=== PATIENT | male | born 1980 | race African-American/Black ===

== ENCOUNTER 2016-10-29 08:33 | Emergency (ER) | payer MEDICAID, OTHER ==
[~2016-10-29] VITALS: Ht 182.9 cm; Wt 98.4 kg
[~2016-10-29 08:33] MED LIST: INSUINJ3; METF-312; TRAM50TA2
[2016-10-29] MEDS ORDERED: KETOROLAC TROMETH 60MG/2ML VIAL IM ONE (10:30)
[2016-10-29 11:35] VITALS: BP 146/90
== END 2016-10-29 12:21 | disposition home or self-care (01) ==
LOC: ER 08:33
DX: S11.91XA Laceration without foreign body of unspecified part of neck, initial encounter (principal); F17.210 Nicotine dependence, cigarettes, uncomplicated; F12.10 Cannabis abuse, uncomplicated; E11.9 Type 2 diabetes mellitus without complications; W26.8XXA Contact with other sharp object(s), not elsewhere classified, initial encounter; Y93.89 Activity, other specified; Y99.8 Other external cause status; Y92.89 Other specified places as the place of occurrence of the external cause; Z79.4 Long term (current) use of insulin
CPT/HCPCS: 70490; 82962; 96372; 99284; J1885

== ENCOUNTER 2016-11-04 19:26 | Emergency (ER) | payer MEDICAID ==
[~2016-11-04] VITALS: Ht 182.9 cm; Wt 94.5 kg
[2016-11-04 20:58] LABS: Basophils # (auto) 0.1 uL; Basophils % (auto) 0.8 % (0.0-2.0); DEFINITIVE VIEW TRANSMISSION; Eosinophils # (auto) 0.1 uL; Eosinophils % (auto) 1.2 % (0.0-7.0); Hematocrit 37.6 % (41.0-53.0); Hemoglobin 11.7 g/dL (13.5-17.5); Lymphocytes # (auto) 2.9 uL; Lymphocytes % (auto) 31.4 % (10.0-50.0); Mean Corpuscular Hemoglobin 25.7 pg (28.0-32.0); Mean Corpuscular Hgb Conc. 31.2 g/dL (32.0-36.0); Mean Corpuscular Volume 82.4 fL (80.0-100.0); Mean Platelet Volume 9.5 fL (7.4-10.4); Monocytes # (auto) 0.5 uL; Monocytes % (auto) 5.5 % (0.0-12.0); Neutrophils # (auto) 5.7 uL; Neutrophils % (auto) 61.1 % (37.0-80.0); Platelet Count (auto) 288 10^3/uL (140-450); Red Cell Distribution Width 13.5 % (11.6-16.0); White Blood Cell 9.3 10^3/uL (4.4-10.8)
[2016-11-04 21:16] LABS: INR 0.93 (0.9-1.15)
[2016-11-04 21:23] LABS: Albumin 3.6 g/dL (3.4-5.0); Anion Gap 10 (5-15); Aspartate Aminotransferase 21 U/L (15-37); Blood Urea Nitrogen 12 mg/dL (7-18); Calcium 9.1 mg/dL (8.5-10.1); Carbon Dioxide 27 mmol/L (21-32); Chloride 107 mmol/L (98-107); GFR African American 108 mL/min; GFR Non-African American 89 mL/min; Glucose 195 mg/dL (74-106); Potassium 3.7 mmol/L (3.5-5.1); Sodium 144 mmol/L (136-145)
[2016-11-04 21:28] LABS: Alkaline Phosphatase 87 U/L (45-117); Bilirubin, Total 0.6 mg/dL (0.2-1.0)
[2016-11-04] MEDS ORDERED: SULFAMETHOX W/TRIMETH(800/160MG) DS TAB PO ONE (21:30)
[2016-11-04 21:32] LABS: B-Type Natriuretic Peptide 6.23 pg/mL (0-100)
[2016-11-04 21:39] LABS: Temperature: 23.7 C (20.0-25.0)
[2016-11-05 00:54] VITALS: BP 115/68
== END 2016-11-05 01:17 | disposition home or self-care (01) ==
LOC: ER 19:37
DX: L03.313 Cellulitis of chest wall (principal); L03.312 Cellulitis of back [any part except buttock and flank]; E11.9 Type 2 diabetes mellitus without complications; F17.210 Nicotine dependence, cigarettes, uncomplicated; F15.10 Other stimulant abuse, uncomplicated; F12.10 Cannabis abuse, uncomplicated; Z79.4 Long term (current) use of insulin
CPT/HCPCS: 36415; 71010; 80053; 82962; 83880; 84484; 85025; 85610; 85730; 93005

== ENCOUNTER 2016-11-13 00:17 | Emergency (ER) | payer MEDICAID ==
[~2016-11-13] VITALS: Ht 188 cm; Wt 94.8 kg
[2016-11-13 00:31] VITALS: BP 136/83
== END 2016-11-13 02:59 | disposition home or self-care (01) ==
LOC: ER 00:17
DX: S11.91XD Laceration without foreign body of unspecified part of neck, subsequent encounter (principal); Z48.01 Encounter for change or removal of surgical wound dressing; F17.210 Nicotine dependence, cigarettes, uncomplicated; F12.10 Cannabis abuse, uncomplicated; F15.10 Other stimulant abuse, uncomplicated; E11.9 Type 2 diabetes mellitus without complications; I10 Essential (primary) hypertension

== ENCOUNTER 2017-01-22 15:27 | Emergency (ER) | payer MEDICAID ==
[~2017-01-22] VITALS: Ht 188 cm; Wt 88.6 kg
[~2017-01-22 15:27] MED LIST changes: -METF-312; +METF-370
[2017-01-22 16:10] LABS: Urine Bilirubin Negative (Negative); Urine Blood Negative /uL (Negative); Urine Color Yellow (Yellow); Urine Ketone Negative (Negative); Urine Mucus FEW (None Seen); Urine Nitrite Negative (Negative); Urine RBC 1 /hpf (0 - 3); Urine Squamous Epithelial Cell FEW /hpf (<5)
[2017-01-22 16:11] LABS: Urine Glucose 4+ mg/dL (Normal)
[2017-01-22 16:17] LABS: Basophils # (auto) 0.1 uL; Basophils % (auto) 0.8 % (0.0-2.0); Eosinophils # (auto) 0 uL; Eosinophils % (auto) 0.5 % (0.0-7.0); Hemoglobin 11.7 g/dL (13.5-17.5); Lymphocytes # (auto) 1.6 uL; Lymphocytes % (auto) 19.8 % (10.0-50.0); Monocytes # (auto) 0.4 uL; Monocytes % (auto) 4.5 % (0.0-12.0); Neutrophils # (auto) 5.9 uL; Neutrophils % (auto) 74.4 % (37.0-80.0); White Blood Cell 7.9 10^3/uL (4.4-10.8)
[2017-01-22 16:18] LABS: Hematocrit 36.1 % (41.0-53.0); Mean Corpuscular Hemoglobin 26.9 pg (28.0-32.0); Mean Corpuscular Hgb Conc. 32.5 g/dL (32.0-36.0); Mean Corpuscular Volume 82.7 fL (80.0-100.0); Mean Platelet Volume 9.3 fL (7.4-10.4); Platelet Count (auto) 309 10^3/uL (140-450); Red Cell Distribution Width 13.9 % (11.6-16.0)
[2017-01-22 16:31] LABS: Albumin 2.8 g/dL (3.4-5.0); BUN/Creatinine Ratio 6.3; Calcium 7.9 mg/dL (8.5-10.1); Potassium 3.1 mmol/L (3.5-5.1)
[2017-01-22 16:34] LABS: Bilirubin, Total 1.5 mg/dL (0.2-1.0); Total Protein 6.1 g/dL (6.4-8.2)
[2017-01-22] MEDS ORDERED: POTASSIUM CHL 10% (20 MEQ/15ML) ORAL SOLN PO ONE (17:00)
[2017-01-22] MEDS ORDERED: InsuLIN REG 1unit/0.01ml Soln (100units/ml) IV ONE (17:00)
[2017-01-22] MEDS ORDERED: HYDROcodone-ACET 5/325MG TAB PO ONE (17:00)
[2017-01-22] MEDS ORDERED: InsuLIN REG 1unit/0.01ml Soln (100units/ml) SC ONE (17:00)
[2017-01-22] MEDS ORDERED: cefTRIAXone W LIDOCAINE 1 GM IM IM ONE (17:00)
[2017-01-22] MEDS ORDERED: metroNIDAZOLE 500 MG TAB PO ONE (17:00)
[2017-01-22 17:10] VITALS: BP 144/87
== END 2017-01-22 18:09 | disposition home or self-care (01) ==
LOC: ER 15:29
DX: S52.602A Unspecified fracture of lower end of left ulna, initial encounter for closed fracture (principal); M79.671 Pain in right foot; I10 Essential (primary) hypertension; E11.9 Type 2 diabetes mellitus without complications; F17.210 Nicotine dependence, cigarettes, uncomplicated; F12.10 Cannabis abuse, uncomplicated; F15.10 Other stimulant abuse, uncomplicated; Y08.89XA Assault by other specified means, initial encounter; Y93.89 Activity, other specified; Y99.8 Other external cause status; Y92.89 Other specified places as the place of occurrence of the external cause; Z48.01 Encounter for change or removal of surgical wound dressing
CPT/HCPCS: 29105; 36415; 73090; 73130; 73630; 80053; 80307; 81001; 85025; 96372; 99285; J0696; J1815

== ENCOUNTER 2017-04-15 22:40 | Inpatient (IN) | payer MEDICAID ==
[~2017-04-15] VITALS: Ht 188 cm; Wt 93.3 kg
[~2017-04-15 22:40] MED LIST changes: +HYDR-531 PO; +INSLANTI SC; -INSUINJ3; -METF-370; +METF850T PO; +SITA100T7 PO; -TRAM50TA2
[2017-04-16 00:16] LABS: Hematocrit 38.3 % (41.0-53.0); Hemoglobin 12.2 g/dL (13.5-17.5); Mean Corpuscular Hemoglobin 26.3 pg (28.0-32.0); Mean Corpuscular Hgb Conc. 31.9 g/dL (32.0-36.0); Mean Corpuscular Volume 82.5 fL (80.0-100.0); Mean Platelet Volume 8.7 fL (6.9-10.8); Platelet Count (auto) 308 10^3/uL (140-450); Red Cell Distribution Width 15.7 % (11.8-14.3); White Blood Cell 3.8 10^3/uL (4.4-10.8)
[2017-04-16 00:29] LABS: Albumin 3.7 g/dL (3.4-5.0)
[2017-04-16 00:32] LABS: BUN/Creatinine Ratio 5.3; Bilirubin, Total 0.4 mg/dL (0.2-1.0); Total Protein 7.2 g/dL (6.4-8.2)
[2017-04-16 00:44] LABS: Basophils # (auto) 0 uL; Basophils % (auto) 0.7 % (0.0-2.0); Eosinophils # (auto) 0.1 uL; Lymphocytes # (auto) 2.3 uL; Neutrophils # (auto) 0.8 uL
[2017-04-16 00:46] LABS: Eosinophils % (auto) 2.7 % (0.0-7.0); Monocytes # (auto) 0.5 uL; Monocytes % (auto) 14.2 % (0.0-12.0); Neutrophils % (auto) 21.3 % (37.0-80.0); Nucleated Red Blood Cells % 0.3 %
[2017-04-16 00:48] LABS: INR 0.89 (0.9-1.15); Partial Thromboplastin Time 27.3 sec (22.64-33.71); Prothrombin Time 9.7 sec (9.37-12.3)
[2017-04-16] MEDS ORDERED: DEXTROSE (50%) 50ML SYRG IV PRN (01:00)
[2017-04-16] MEDS ORDERED: CLINDAMYCIN 600MG IV 50 ML IV ONE (01:00)
[2017-04-16] MEDS ORDERED: TEMAZEPAM 15 MG CAP PO PRN (01:00)
[2017-04-16] MEDS ORDERED: ACETAMINOPHEN 325 MG TAB PO PRN (01:00)
[2017-04-16] MEDS ORDERED: ONDANSETRON HCL 4 MG/2 ML VIAL IV PRN (01:00)
[2017-04-16] MEDS ORDERED: HYDROcodone-ACET 5/325MG TAB PO PRN (01:00)
[2017-04-16 03:04] LABS: Metamyelocytes % 0; Myelocytes % 0; Promyelocytes % 0; Reactive Lymphocytes 0
[2017-04-16 03:05] LABS: Hypochromia Slight
[2017-04-16] MEDS: SODIUM CHLORIDE 0.9% 1,000 ML IV SCH ×2 (03:24→14:23)
[2017-04-16] MEDS ORDERED: SODIUM CHLORIDE 0.9% 1,000 ML IV ONE (03:30)
[2017-04-16] MEDS ORDERED: InsuLIN REG 1unit/0.01ml Soln (100units/ml) IV ONE (03:30)
[2017-04-16] MEDS: InsuLIN REG 1unit/0.01ml Soln (100units/ml) SC SCH ×3 (06:02→18:00)
[2017-04-16] MEDS: CLINDAMYCIN 600MG IV 50 ML IV SCH ×2 (06:02→14:22)
[2017-04-16] MEDS: ACCU-CHEK COMFORT CURVE STRIP VI SCH ×3 (06:02→18:00)
[2017-04-16 08:03] LABS: Platelet Estimate Adequate
[2017-04-16] MEDS: FAMOTIDINE 20 MG TAB PO SCH ×2 (10:09→22:16)
[2017-04-16] MEDS: LOSARTAN POTASSIUM 25 MG TAB PO SCH (10:09)
[2017-04-16] MEDS ORDERED: VANCOMYCIN PER PHARMACY 0 MG IV SCH (14:30)
[2017-04-16] MEDS: VANCOMYCIN 1,500 MG in D5W 5% 250 ML IV SCH (15:38)
[2017-04-16] MEDS ORDERED: BUPIVACAINE 0.75% INJ 10ML MPV SDV IJ ONE (16:09)
[2017-04-16] MEDS ORDERED: NEOMYCIN-BACITRACIN-POLYM 15GM TOP OINT TOP ONE (16:09)
[2017-04-16] MEDS ORDERED: ceFAZolin 1GM VL ONE (16:09)
[2017-04-16] MEDS ORDERED: SODIUM CHLORIDE LOCK 20 ML ONE (16:45)
[2017-04-16] MEDS ORDERED: ONDANSETRON HCL 4 MG/2 ML VIAL ONE (16:45)
[2017-04-16] MEDS ORDERED: PROPOFOL 10 MG/ML 20 ML IV ONE (16:45)
[2017-04-16] MEDS ORDERED: MIDAZOLAM HCL 1MG/1ML-2 ML VIAL ONE (16:45)
[2017-04-16] MEDS ORDERED: fentaNYL CITRATE 100 MCG/2 ML VL ONE (16:45)
[2017-04-16] MEDS ORDERED: ACCU-CHEK COMFORT CURVE STRIP VI ONE (17:00)
[2017-04-16] MEDS ORDERED: METOCLOPRAMIDE HCL 5MG/ml INJ 2ml VIAL IV ONE (17:00)
[2017-04-16] MEDS: HYDROmorphone HCL 2 MG/ML VL IV PRN ×2 (17:37→17:47)
[2017-04-16 19:00] VITALS: BP 147/83
[2017-04-16] MEDS: MORPHINE SULF INJ 2 MG/ML SYRINGE 1ML IV PRN (20:55)
[2017-04-16 21:45] VITALS: BP 147/83
[2017-04-16] MEDS: INSULIN DETEMIR(LEVEMIR) 1unit/0.01ml Soln (100units/ml) SC SCH (22:16)
[2017-04-17] MEDS: ACCU-CHEK COMFORT CURVE STRIP VI SCH ×5 (00:13→23:51)
[2017-04-17] MEDS: InsuLIN REG 1unit/0.01ml Soln (100units/ml) SC SCH ×5 (00:14→23:51)
[2017-04-17] MEDS ORDERED: QUET300T14 PO (02:26)
[2017-04-17] MEDS ORDERED: DOCU1CAP31 PO (02:26)
[2017-04-17] MEDS ORDERED: FER325T PO (02:26)
[2017-04-17] MEDS ORDERED: GABA-497 PO (02:26)
[2017-04-17] MEDS ORDERED: OMEP20CA74 PO (02:26)
[2017-04-17] MEDS ORDERED: LOSA25TA9 PO (02:26)
[2017-04-17] MEDS ORDERED: ENAL20TA70 PO (02:26)
[2017-04-17] MEDS ORDERED: MIRT30TA OR (02:26)
[2017-04-17] MEDS ORDERED: HYDR-4683 PO (02:26)
[2017-04-17] MEDS ORDERED: SIMV-8 PO (02:26)
[2017-04-17] MEDS: SODIUM CHLORIDE 0.9% 1,000 ML IV SCH (03:30)
[2017-04-17] MEDS: VANCOMYCIN 1,500 MG in D5W 5% 250 ML IV SCH ×2 (04:27→18:13)
[2017-04-17 04:54] LABS: Hematocrit 39.1 % (41.0-53.0); Hemoglobin 12.6 g/dL (13.5-17.5); Mean Corpuscular Hemoglobin 26.1 pg (28.0-32.0); Mean Corpuscular Hgb Conc. 32.1 g/dL (32.0-36.0); Mean Corpuscular Volume 81.1 fL (80.0-100.0); Mean Platelet Volume 8.2 fL (6.9-10.8); Platelet Count (auto) 270 10^3/uL (140-450); Red Cell Distribution Width 15.8 % (11.8-14.3)
[2017-04-17 05:00] VITALS: BP 131/76
[2017-04-17 05:01] LABS: Metamyelocytes % 0; Myelocytes % 0; Promyelocytes % 0; Reactive Lymphocytes 0
[2017-04-17 05:22] LABS: Albumin 3.1 g/dL (3.4-5.0); BUN/Creatinine Ratio 7.6; Bilirubin, Total 0.6 mg/dL (0.2-1.0); Calcium 8.4 mg/dL (8.5-10.1); Total Protein 6.6 g/dL (6.4-8.2)
[2017-04-17 05:30] LABS: Potassium 2.8 mmol/L (3.5-5.1)
[2017-04-17] MEDS ORDERED: POTASSIUM CHL 20 Meq TABLET PO ONE (06:30)
[2017-04-17] MEDS: INSULIN DETEMIR(LEVEMIR) 1unit/0.01ml Soln (100units/ml) SC SCH (07:00)
[2017-04-17 07:32] VITALS: BP 145/87
[2017-04-17 08:00] VITALS: BP 145/87
[2017-04-17 09:22] LABS: Platelet Estimate Adequate
[2017-04-17 09:23] LABS: Hypochromia Slight
[2017-04-17 09:24] LABS: Large Platelets FEW
[2017-04-17] MEDS: FAMOTIDINE 20 MG TAB PO SCH ×2 (10:11→22:12)
[2017-04-17] MEDS: LOSARTAN POTASSIUM 25 MG TAB PO SCH (10:11)
[2017-04-17] MEDS ORDERED: LEVOFLOXACIN 750MG 150 ML IV ONE (11:15)
[2017-04-17 12:12] VITALS: BP_SYST 145; BP_SYST 146; BP_DIAS 85; BP_DIAS 87
[2017-04-17 16:30] VITALS: BP 155/95
[2017-04-17 21:57] VITALS: BP 150/88
[2017-04-18 04:37] LABS: Albumin 3.1 g/dL (3.4-5.0); BUN/Creatinine Ratio 9.1; Calcium 8.9 mg/dL (8.5-10.1); Potassium 3.6 mmol/L (3.5-5.1)
[2017-04-18 04:40] LABS: Bilirubin, Total 0.8 mg/dL (0.2-1.0); Total Protein 6.6 g/dL (6.4-8.2)
[2017-04-18 05:02] VITALS: BP 150/99
[2017-04-18] MEDS: VANCOMYCIN 1,500 MG in D5W 5% 250 ML IV SCH ×2 (05:02→16:28)
[2017-04-18] MEDS: InsuLIN REG 1unit/0.01ml Soln (100units/ml) SC SCH ×3 (06:31→19:20)
[2017-04-18] MEDS: ACCU-CHEK COMFORT CURVE STRIP VI SCH ×3 (06:31→18:50)
[2017-04-18] MEDS ORDERED: INSULIN DETEMIR(LEVEMIR) 1unit/0.01ml Soln (100units/ml) SC SCH (07:00)
[2017-04-18 09:00] VITALS: BP 144/99
[2017-04-18] MEDS: LOSARTAN POTASSIUM 25 MG TAB PO SCH (09:47)
[2017-04-18] MEDS: FAMOTIDINE 20 MG TAB PO SCH (09:47)
[2017-04-18] MEDS: MORPHINE SULF INJ 2 MG/ML SYRINGE 1ML IV PRN (09:55)
[2017-04-18] MEDS ORDERED: LEVOFLOXACIN 750MG 150 ML IV SCH (10:00)
[2017-04-18] MEDS ORDERED: ASCORBIC ACID 500 MG TAB PO SCH (10:00)
[2017-04-18] MEDS ORDERED: MULTIPLE VITAMIN TAB PO SCH (10:00)
[2017-04-18 13:00] VITALS: BP 150/104
[2017-04-18 17:00] VITALS: BP 152/94
== END 2017-04-18 20:45 | disposition home health service (06) | DRG 312 ==
LOC: ER 22:44 → OVERFLOW 22:45 → EAST 04-16 18:36 → TELE-EAST 04-16 18:36 → EAST 04-16 23:11
PROVIDERS: ADMIT Internal Medicine; ATTEND Internal Medicine
PROC: 0HRMXK3 Replacement of Right Foot Skin with Nonautologous Tissue Substitute, Full Thickness, External Approach (ICD-10-PCS; principal; 2017-04-16 16:50)
DX: T87.43 Infection of amputation stump, right lower extremity (principal); E11.621 Type 2 diabetes mellitus with foot ulcer; Y83.8 Other surgical procedures as the cause of abnormal reaction of the patient, or of later complication, without mention of misadventure at the time of the procedure; M86.8X7 Other osteomyelitis, ankle and foot; L97.519 Non-pressure chronic ulcer of other part of right foot with unspecified severity; E11.65 Type 2 diabetes mellitus with hyperglycemia; F20.9 Schizophrenia, unspecified; I10 Essential (primary) hypertension; B96.1 Klebsiella pneumoniae [K. pneumoniae] as the cause of diseases classified elsewhere; E78.5 Hyperlipidemia, unspecified; B95.62 Methicillin resistant Staphylococcus aureus infection as the cause of diseases classified elsewhere; E11.69 Type 2 diabetes mellitus with other specified complication; E87.6 Hypokalemia; F17.210 Nicotine dependence, cigarettes, uncomplicated; F31.9 Bipolar disorder, unspecified; M85.80 Other specified disorders of bone density and structure, unspecified site; Z80.6 Family history of leukemia; Z83.3 Family history of diabetes mellitus; Z85.6 Personal history of leukemia; Z89.431 Acquired absence of right foot; Z79.4 Long term (current) use of insulin; Z79.899 Other long term (current) drug therapy
CPT/HCPCS: 36415; 71010; 73620; 80053; 80202; 80307; 82962; 83036; 85007; 85027; 85610; 85652; 85730; 87040; 87077; 87186; 87205; 93005; 94761; 96365; 96367; 96375; J0690; J1815; J1956; J2250; J2405; J2704; J3490; J7060

== ENCOUNTER 2017-05-28 05:04 | Day surgery (SDC) | payer MEDICAID ==
[~2017-05-28] VITALS: Ht 188 cm; Wt 95.3 kg
[~2017-05-28 05:04] MED LIST changes: +DOCU1CAP31 PO; +ENAL20TA70 PO; +FER325T PO; +GABA-497 PO; +HYDR-4683 PO; +LOSA25TA9 PO; +MIRT30TA OR; +OMEP20CA74 PO; +QUET300T14 PO; +SIMV-8 PO
[2017-05-28] MEDS ORDERED: SODIUM CHLORIDE 0.9% 1,000 ML IV ONE (06:53)
[2017-05-28 07:13] LABS: Basophils # (auto) 0 uL; Eosinophils # (auto) 0.1 uL; Eosinophils % (auto) 0.9 % (0.0-7.0); Hemoglobin 14.3 g/dL (13.5-17.5); Lymphocytes # (auto) 2.6 uL; Mean Platelet Volume 9.6 fL (6.9-10.8); Monocytes # (auto) 0.5 uL
[2017-05-28 07:21] LABS: INR 0.92 (0.9-1.15); Partial Thromboplastin Time 25.4 sec (22.64-33.71)
[2017-05-28 07:27] LABS: Basophils % (auto) 0.2 % (0.0-2.0); Hematocrit 44.1 % (41.0-53.0); Lymphocytes % (auto) 32.6 % (10.0-50.0); Mean Corpuscular Hemoglobin 25.3 pg (28.0-32.0); Mean Corpuscular Hgb Conc. 32.4 g/dL (32.0-36.0); Monocytes % (auto) 5.8 % (0.0-12.0); Neutrophils # (auto) 4.8 uL; Neutrophils % (auto) 60.5 % (37.0-80.0); Platelet Count (auto) 142 10^3/uL (140-450); Red Cell Distribution Width 14.7 % (11.8-14.3)
[2017-05-28 07:31] LABS: Bilirubin, Total 0.6 mg/dL (0.2-1.0); Potassium 3.3 mmol/L (3.5-5.1); Total Protein 7.2 g/dL (6.4-8.2)
[2017-05-28] MEDS ORDERED: POTASSIUM CHL 10% (20 MEQ/15ML) 15ml ORAL SOLN PO ONE (09:00)
[2017-05-28] MEDS ORDERED: ceFAZolin 1GM/50ML 50 ML IV ONE (09:03)
[2017-05-28] MEDS ORDERED: ceFAZolin 1GM VL ONE ×2 (09:15→09:57)
[2017-05-28] MEDS ORDERED: NEOMYCIN-BACITRACIN-POLYM 15GM TOP OINT TOP ONE (09:15)
[2017-05-28] MEDS ORDERED: BUPIVACAINE 0.75% INJ 10ML MPV SDV IJ ONE (09:16)
[2017-05-28] MEDS ORDERED: fentaNYL CITRATE 100 MCG/2 ML VL ONE ×3 (09:48→10:05)
[2017-05-28] MEDS ORDERED: PROPOFOL 10 MG/ML 20 ML IV ONE (09:49)
[2017-05-28] MEDS ORDERED: METOPROLOL TARTRATE 1MG/1ML-5ML VIAL IV ONE (10:07)
[2017-05-28] MEDS ORDERED: hydrALAZINE HCL 20 MG/ML VL ONE (10:08)
[2017-05-28 11:42] VITALS: BP 122/71
== END 2017-05-28 11:47 | disposition home or self-care (01) ==
LOC: ER 05:09 → SUR 05:10 → ER 08:54 → SUR 11:47
PROVIDERS: ATTEND Podiatrist
DX: L97.819 Non-pressure chronic ulcer of other part of right lower leg with unspecified severity (principal); I10 Essential (primary) hypertension; E11.9 Type 2 diabetes mellitus without complications; K21.9 Gastro-esophageal reflux disease without esophagitis; J40 Bronchitis, not specified as acute or chronic; F20.9 Schizophrenia, unspecified; F31.9 Bipolar disorder, unspecified; F32.9 Major depressive disorder, single episode, unspecified
CPT/HCPCS: 15004; 15275; J0360; J3010; J7030; L3260; 36415; 71020; 73630; 80053; 82962; 83735; 84443; 85025; 85610; 85730; 96360; J0690; J2704; J3490

== ENCOUNTER 2019-05-23 22:59 | Emergency (ER) | payer MEDICAID ==
[~2019-05-23] VITALS: Ht 185.4 cm; Wt 108.9 kg
[~2019-05-23 22:59] MED LIST changes: +ENAL20TA PO; -ENAL20TA70 PO; -GABA-497 PO; +GABA300C10 PO; -HYDR-4683 PO; +HYDR-4833 PO; +LOSA25TA38 PO; -LOSA25TA9 PO
[2019-05-23 23:32] VITALS: BP 144/77
[2019-05-24] MEDS ORDERED: IBUPROFEN 800 MG TAB PO ONE (00:15)
[2019-05-24] MEDS ORDERED: ACETAMINOPHEN 500 MG TAB PO ONE (00:15)
[2019-05-24] MEDS ORDERED: SODIUM CHLORIDE 0.9% 1,000 ML IV ONE (01:00)
[2019-05-24] MEDS ORDERED: cefTRIAXone SOD 1,000 MG VL IV ONE (01:00)
[2019-05-24] MEDS ORDERED: InsuLIN REG 1unit/0.01ml Soln (100units/ml) IV ONE (01:00)
[2019-05-24] MEDS ORDERED: cefTRIAXone 1GM/50ML D5W 50 ML IV ONE (01:08)
[2019-05-24 01:24] LABS: Basophils # (auto) 0 uL; Basophils % (auto) 0.4 % (0.0-2.0); Eosinophils # (auto) 0.1 uL; Eosinophils % (auto) 0.8 % (0.0-7.0); Hematocrit 31.4 % (41.0-53.0); Hemoglobin 10.3 g/dL (13.5-17.5); Lymphocytes # (auto) 2.4 uL; Lymphocytes % (auto) 31.2 % (10.0-50.0); Mean Corpuscular Hemoglobin 26.3 pg (28.0-32.0); Mean Corpuscular Hgb Conc. 32.8 g/dL (32.0-36.0); Mean Corpuscular Volume 80.2 fL (80.0-100.0); Monocytes # (auto) 0.7 uL; Monocytes % (auto) 8.7 % (0.0-12.0); Neutrophils # (auto) 4.6 uL; Neutrophils % (auto) 58.9 % (37.0-80.0); Platelet Count (auto) 147 10^3/uL (140-450); Red Blood Cells 3.91 10^6/uL (4.5-5.90); Red Cell Distribution Width 13.6 % (11.8-14.3); White Blood Cell 7.8 10^3/uL (4.4-10.8)
[2019-05-24 01:38] LABS: INR 1.04 (0.9-1.15)
[2019-05-24 02:36] LABS: Potassium 3.2 mmol/L (3.5-5.1)
[2019-05-24 02:43] LABS: Albumin 3.5 g/dL (3.4-5.0); BUN/Creatinine Ratio 14.8; Bilirubin, Total 1.1 mg/dL (0.2-1.0); Calcium 8.5 mg/dL (8.5-10.1); Total Protein 6.9 g/dL (6.4-8.2)
[2019-05-24] MEDS ORDERED: POTASSIUM CHL 20 Meq TABLET PO ONE (02:45)
[2019-05-24 03:44] LABS: CRP High Sensitivity 1.61 mg/dL (< 0.3)
[2019-05-24] MEDS ORDERED: MUPIROCIN 2% OINT 15gm or 22gm TOP ONE (03:45)
[2019-05-24] MEDS ORDERED: BACITRACIN TOP OINT 1 UD PKG TOP ONE ×2 (04:03→04:15)
== END 2019-05-24 04:12 | disposition home or self-care (01) ==
LOC: ER 23:07
DX: S91.105A Unspecified open wound of left lesser toe(s) without damage to nail, initial encounter (principal); E11.621 Type 2 diabetes mellitus with foot ulcer; E11.65 Type 2 diabetes mellitus with hyperglycemia; D64.9 Anemia, unspecified; E87.6 Hypokalemia; F17.210 Nicotine dependence, cigarettes, uncomplicated; K21.9 Gastro-esophageal reflux disease without esophagitis; E78.5 Hyperlipidemia, unspecified; I10 Essential (primary) hypertension; X58.XXXA Exposure to other specified factors, initial encounter; Y93.89 Activity, other specified; Y92.89 Other specified places as the place of occurrence of the external cause; Y99.8 Other external cause status
CPT/HCPCS: 36415; 73630; 80053; 82962; 83036; 83605; 85025; 85610; 85652; 86141; 87040; 96361; 96374; 96375; 99284; J0696; J1815; J7030

== ENCOUNTER 2020-03-21 04:58 | Inpatient (IN) | payer MEDICAID ==
[~2020-03-21] VITALS: Ht 188 cm; Wt 91.8 kg
[~2020-03-21 04:58] MED LIST changes: -ENAL20TA PO; +ENAL20TA8 PO
[2020-03-21] MEDS ORDERED: SODIUM CHLORIDE 0.9% 1,000 ML IV ONE ×2 (05:30→19:45)
[2020-03-21] MEDS ORDERED: InsuLIN REG 1unit/0.01ml Soln (100units/ml) IV ONE (05:30)
[2020-03-21 06:03] LABS: Basophils # (auto) 0 10 ^3/uL (0-0.2); Basophils % (auto) 0.4 % (0.0-2.0); Eosinophils # (auto) 0 10 ^3/uL (0-0.8); Eosinophils % (auto) 0.5 % (0.0-7.0); Hematocrit 31.9 % (41.0-53.0); Hemoglobin 9.9 g/dL (13.5-17.5); Lymphocytes # (auto) 1.3 10 ^3/uL (0.4-5.4); Mean Corpuscular Hemoglobin 23.8 pg (28.0-32.0); Mean Corpuscular Hgb Conc. 31.1 g/dL (32.0-36.0); Mean Corpuscular Volume 76.7 fL (80.0-100.0); Monocytes # (auto) 0.3 10 ^3/uL (0-1.3); Monocytes % (auto) 4.3 % (0.0-12.0); Neutrophils # (auto) 5.9 10 ^3/uL (1.6-8.6); Neutrophils % (auto) 77.8 % (37.0-80.0); Nucleated Red Blood Cells % 0.2 %; Platelet Count (auto) 283 10^3/uL (140-450); Red Blood Cells 4.16 10^6/uL (4.5-5.90); Red Cell Distribution Width 15.5 % (11.8-14.3); White Blood Cell 7.6 10^3/uL (4.4-10.8)
[2020-03-21 06:05] LABS: Urine Bacteria NONE SEEN /hpf (None Seen); Urine Blood Negative /uL (Negative); Urine Specific Gravity 1.026 (1.001-1.035); Urine WBC <1 /hpf (0 - 3)
[2020-03-21 06:18] LABS: INR 0.97 (0.9-1.15); Partial Thromboplastin Time 29.6 sec (23.0-31.2)
[2020-03-21 06:23] LABS: Albumin 2.9 g/dL (3.4-5.0); Anion Gap 8 (5-15); Blood Urea Nitrogen 9 mg/dL (7-18); Calcium 9.2 mg/dL (8.5-10.1); Carbon Dioxide 38 mmol/L (21-32); Chloride 75 mmol/L (98-107); Sodium 121 mmol/L (136-145)
[2020-03-21 06:24] LABS: Alcohol, Urine < 3.0 mg/dL (0-10); Amphetamine Screen, Urine NEGATIVE (NEGATIVE); Barbiturate Scree,Urine NEGATIVE (NEGATIVE); Benzodiazephine Screen, Urine NEGATIVE (NEGATIVE); Cannabinoid Screen, Urine POSITIVE (NEGATIVE); Cocaine Screen, Urine NEGATIVE (NEGATIVE); Opiate Scree,Urine NEGATIVE (NEGATIVE); Phencyclidine Screen, Urine NEGATIVE (NEGATIVE)
[2020-03-21 06:27] LABS: Lactic Acid w/Reflex 2.2 mmol/L (0.4-2.0)
[2020-03-21 06:32] LABS: Alanine Aminotransferase 20 U/L (16-61); Alkaline Phosphatase 163 U/L (45-117); Aspartate Aminotransferase 12 U/L (15-37); BUN/Creatinine Ratio 7.1; Bilirubin, Total 0.4 mg/dL (0.2-1.0); GFR African American 81 mL/min; GFR Non-African American 67 mL/min; Total Protein 7.8 g/dL (6.4-8.2)
[2020-03-21 06:36] LABS: Glucose 820 mg/dL (74-106); Potassium 2.7 mmol/L (3.5-5.1)
[2020-03-21] MEDS ORDERED: PIPERACILLIN-TAZOB 3.375GM 100 ML IV ONE (10:15)
[2020-03-21] MEDS ORDERED: NITROGLYCERIN 0.4 MG SL TAB SL PRN ×2 (10:30→12:45)
[2020-03-21] MEDS ORDERED: SODIUM CHLORIDE 0.9% 2,000 ML IV ONE (10:30)
[2020-03-21] MEDS ORDERED: MORPHINE SULF INJ 2 MG/ML SYRINGE 1ML IV PRN ×2 (10:30→12:45)
[2020-03-21] MEDS ORDERED: POTASSIUM CHLORIDE 60 MEQ, LIDOCAINE 1% (LOCAL ANESTH.) 6 ML in SODIUM CHL 0.9% 500 ML IV ONE (10:30)
[2020-03-21] MEDS ORDERED: SOD CHL 0.9%/ KCL 40MEQ 1,000 ML IV SCH (10:30)
[2020-03-21] MEDS ORDERED: INSU100I44 SC (11:43)
[2020-03-21] MEDS ORDERED: MIRT1TAB38 PO (11:43)
[2020-03-21] MEDS ORDERED: IBUP600T27 PO (11:43)
[2020-03-21] MEDS ORDERED: INSU1INJ19 SC (11:43)
[2020-03-21 11:57] VITALS: BP 134/83
[2020-03-21] MEDS ORDERED: DOCUSATE SOD 100 MG CAP PO PRN (12:45)
[2020-03-21] MEDS ORDERED: VANCOMYCIN PER PHARMACY 0 MG IV SCH (12:45)
[2020-03-21] MEDS ORDERED: DEXTROSE (50%) 50ML SYRG IV PRN (12:45)
[2020-03-21] MEDS ORDERED: ONDANSETRON HCL 4 MG/2 ML VIAL IV PRN (12:45)
[2020-03-21] MEDS ORDERED: ALUM & MAG HYDROX-SIMETH LIQ(MAALOX) 30 ML PO PRN (12:45)
[2020-03-21] MEDS ORDERED: ACETAMINOPHEN 325 MG TAB PO PRN (12:45)
[2020-03-21] MEDS ORDERED: VANCOMYCIN 1GM/250ML 250 ML IV ONE (13:00)
[2020-03-21] MEDS: GABAPENTIN 300 MG CAP PO SCH ×2 (14:00→22:42)
[2020-03-21 15:09] LABS: Chloride 86 mmol/L (98-107); Sodium 129 mmol/L (136-145)
[2020-03-21 15:15] LABS: Anion Gap 5 (5-15); BUN/Creatinine Ratio 9.1; Blood Urea Nitrogen 9 mg/dL (7-18); Calcium 8.9 mg/dL (8.5-10.1); Carbon Dioxide 38 mmol/L (21-32); Cholesterol 168 mg/dL (< 200); GFR African American 108 mL/min; GFR Non-African American 89 mL/min; HDL Cholesterol 88 mg/dL (40-59); LDL Cholesterol 66 mg/dL (< 100); Triglycerides 88 mg/dL (< 150)
[2020-03-21 15:46] LABS: Glucose 483 mg/dL (74-106); Potassium 2.9 mmol/L (3.5-5.1)
[2020-03-21 17:00] VITALS: BP 127/73
[2020-03-21] MEDS: FERROUS SULFATE 325 MG TAB PO SCH (18:00)
[2020-03-21] MEDS: PIPERACILLIN-TAZOB 3.375GM 100 ML IV SCH ×2 (18:00→23:05)
[2020-03-21] MEDS: ACCU-CHEK COMFORT CURVE STRIP VI SCH (18:00)
[2020-03-21] MEDS: InsuLIN REG 1unit/0.01ml Soln (100units/ml) SC SCH ×2 (18:45→23:05)
[2020-03-21] MEDS ORDERED: INSULIN LANTUS (GLARGINE) 1 /0.01ml (100units/ml) SC ONE (19:00)
[2020-03-21] MEDS ORDERED: SODIUM CHLORIDE 0.9% 1,000 ML IV SCH (19:00)
[2020-03-21] MEDS: SOD CHL 0.9%/ KCL 40MEQ 1,000 ML IV SCH (19:42)
[2020-03-21 21:42] VITALS: BP 120/66
[2020-03-21] MEDS: ATORVASTATIN 20 MG TAB PO SCH (22:41)
[2020-03-21] MEDS: FAMOTIDINE 20 MG TAB PO SCH (22:42)
[2020-03-21] MEDS: INSULIN LANTUS (GLARGINE) 1 /0.01ml (100units/ml) SC SCH (22:42)
[2020-03-21] MEDS: MORPHINE SULF INJ 2 MG/ML SYRINGE 1ML IV PRN (22:43)
[2020-03-22] MEDS: VANCOMYCIN 1GM/250ML 250 ML IV SCH ×2 (04:31→18:10)
[2020-03-22 05:00] VITALS: BP 111/75
[2020-03-22] MEDS: InsuLIN REG 1unit/0.01ml Soln (100units/ml) SC SCH ×4 (05:20→23:51)
[2020-03-22] MEDS: ACCU-CHEK COMFORT CURVE STRIP VI SCH ×5 (05:27→23:46)
[2020-03-22] MEDS: PIPERACILLIN-TAZOB 3.375GM 100 ML IV SCH ×4 (05:51→23:46)
[2020-03-22] MEDS: GABAPENTIN 300 MG CAP PO SCH ×3 (05:52→22:03)
[2020-03-22 06:33] LABS: Basophils # (auto) 0 10 ^3/uL (0-0.2); Eosinophils # (auto) 0.1 10 ^3/uL (0-0.8); Lymphocytes # (auto) 2.1 10 ^3/uL (0.4-5.4); Mean Corpuscular Hgb Conc. 31.5 g/dL (32.0-36.0); Monocytes # (auto) 0.4 10 ^3/uL (0-1.3); Neutrophils # (auto) 3.1 10 ^3/uL (1.6-8.6); Nucleated Red Blood Cells % 0.1 %; Red Cell Distribution Width 15.5 % (11.8-14.3); White Blood Cell 5.7 10^3/uL (4.4-10.8)
[2020-03-22 06:36] LABS: Basophils % (auto) 0.4 % (0.0-2.0); Eosinophils % (auto) 2.1 % (0.0-7.0); Hematocrit 29.6 % (41.0-53.0); Hemoglobin 9.3 g/dL (13.5-17.5); Mean Corpuscular Volume 76.3 fL (80.0-100.0); Monocytes % (auto) 7.4 % (0.0-12.0); Neutrophils % (auto) 54.1 % (37.0-80.0); Platelet Count (auto) 263 10^3/uL (140-450); Red Blood Cells 3.88 10^6/uL (4.5-5.90)
[2020-03-22 09:00] VITALS: BP 117/73
[2020-03-22] MEDS: FERROUS SULFATE 325 MG TAB PO SCH ×2 (09:00→19:26)
[2020-03-22] MEDS: SOD CHL 0.9%/ KCL 40MEQ 1,000 ML IV SCH (10:18)
[2020-03-22] MEDS: ASPirin 81 mg TAB PO SCH (10:19)
[2020-03-22] MEDS: LOSARTAN POTASSIUM 25 MG TAB PO SCH (10:20)
[2020-03-22] MEDS: FAMOTIDINE 20 MG TAB PO SCH ×2 (10:20→22:03)
[2020-03-22] MEDS ORDERED: DOCUSATE CALCIUM 240 MG CAP PO PRN (10:45)
[2020-03-22] MEDS ORDERED: POTASSIUM EFFERVESENT TAB 25 MEQ PO ONE (12:30)
[2020-03-22 12:57] VITALS: BP 125/86
[2020-03-22] MEDS: HYDROcodone-ACET 5/325MG TAB PO PRN ×2 (15:55→19:26)
[2020-03-22] MEDS ORDERED: IOHEXOL 350 MG/ML 100ML IJ ONE (16:54)
[2020-03-22 17:00] VITALS: BP 149/87
[2020-03-22 22:00] VITALS: BP 131/78
[2020-03-22] MEDS: INSULIN LANTUS (GLARGINE) 1 /0.01ml (100units/ml) SC SCH (22:03)
[2020-03-22] MEDS: ATORVASTATIN 20 MG TAB PO SCH (22:03)
[2020-03-22] MEDS: MORPHINE SULF INJ 2 MG/ML SYRINGE 1ML IV PRN (22:04)
[2020-03-23 05:07] LABS: Basophils # (auto) 0 10 ^3/uL (0-0.2); Basophils % (auto) 0.3 % (0.0-2.0); Eosinophils # (auto) 0.1 10 ^3/uL (0-0.8); Eosinophils % (auto) 2.4 % (0.0-7.0); Hematocrit 29.2 % (41.0-53.0); Hemoglobin 8.9 g/dL (13.5-17.5); Lymphocytes # (auto) 2.6 10 ^3/uL (0.4-5.4); Lymphocytes % (auto) 43.7 % (10.0-50.0); Mean Corpuscular Hemoglobin 23.2 pg (28.0-32.0); Mean Corpuscular Hgb Conc. 30.4 g/dL (32.0-36.0); Mean Corpuscular Volume 76.4 fL (80.0-100.0); Monocytes # (auto) 0.5 10 ^3/uL (0-1.3); Monocytes % (auto) 8.3 % (0.0-12.0); Neutrophils # (auto) 2.7 10 ^3/uL (1.6-8.6); Neutrophils % (auto) 45.3 % (37.0-80.0); Nucleated Red Blood Cells % 0.1 %; Platelet Count (auto) 259 10^3/uL (140-450); Red Blood Cells 3.82 10^6/uL (4.5-5.90); Red Cell Distribution Width 15.8 % (11.8-14.3)
[2020-03-23 05:24] LABS: BUN/Creatinine Ratio 18.4; Calcium 8.4 mg/dL (8.5-10.1); Potassium 3.8 mmol/L (3.5-5.1)
[2020-03-23 05:30] VITALS: BP 116/56
[2020-03-23] MEDS: PIPERACILLIN-TAZOB 3.375GM 100 ML IV SCH ×3 (05:32→17:52)
[2020-03-23] MEDS: GABAPENTIN 300 MG CAP PO SCH ×3 (05:32→23:46)
[2020-03-23] MEDS: ACCU-CHEK COMFORT CURVE STRIP VI SCH ×4 (05:32→23:39)
[2020-03-23] MEDS: InsuLIN REG 1unit/0.01ml Soln (100units/ml) SC SCH ×4 (05:41→23:39)
[2020-03-23] MEDS: VANCOMYCIN 1GM/250ML 250 ML IV SCH ×2 (06:15→17:51)
[2020-03-23 09:00] VITALS: BP 120/70
[2020-03-23] MEDS: FERROUS SULFATE 325 MG TAB PO SCH ×3 (09:05→17:52)
[2020-03-23] MEDS: ASPirin 81 mg TAB PO SCH (09:06)
[2020-03-23] MEDS: FAMOTIDINE 20 MG TAB PO SCH ×2 (09:06→23:46)
[2020-03-23] MEDS: LOSARTAN POTASSIUM 25 MG TAB PO SCH (09:06)
[2020-03-23 13:00] VITALS: BP 108/57
[2020-03-23] MEDS ORDERED: LIDOCAINE 1% (LOCAL ANESTH.) PF 5ml SDV ID ONE (16:15)
[2020-03-23 16:57] VITALS: BP 115/78
[2020-03-23] MEDS: MORPHINE SULF INJ 2 MG/ML SYRINGE 1ML IV PRN (21:08)
[2020-03-23 23:31] VITALS: BP 136/80
[2020-03-23] MEDS: INSULIN LANTUS (GLARGINE) 1 /0.01ml (100units/ml) SC SCH (23:38)
[2020-03-23] MEDS: SODIUM CHLOR 0.9% PF (SALINE LOCK) 10ML VIAL/SYR IV SCH (23:45)
[2020-03-23] MEDS: ATORVASTATIN 20 MG TAB PO SCH (23:45)
[2020-03-23] MEDS: MEROPENEM 1GM IVPB 100 ML IV SCH (23:45)
[2020-03-23] MEDS: HYDROcodone-ACET 5/325MG TAB PO PRN (23:47)
[2020-03-23] MEDS: LORazepam 0.5 MG TAB PO PRN (23:47)
[2020-03-24] MEDS ORDERED: DIGOXIN (250MCG/ML) 2 ML AMPULE IV ONE (03:00)
[2020-03-24] MEDS ORDERED: AMIODARONE HCL 150 MG in D5W 5% 100 ML IV ONE ×2 (04:00→04:45)
[2020-03-24] MEDS ORDERED: AMIODARONE 450mg/250ml AE 250 ML IV ONE (04:10)
[2020-03-24] MEDS ORDERED: AMIODARONE HCL (50 MG/ ML) 3 ML VIAL IV ONE (04:14)
[2020-03-24] MEDS ORDERED: AMIODARONE 450mg/250ml AE 250 ML IV SCH ×2 (04:54→10:54)
[2020-03-24 05:30] VITALS: BP 93/74
[2020-03-24] MEDS: InsuLIN REG 1unit/0.01ml Soln (100units/ml) SC SCH ×3 (06:00→17:34)
[2020-03-24] MEDS: MEROPENEM 1GM IVPB 100 ML IV SCH ×3 (06:00→22:04)
[2020-03-24] MEDS: GABAPENTIN 300 MG CAP PO SCH ×3 (06:00→22:05)
[2020-03-24] MEDS: VANCOMYCIN 1GM/250ML 250 ML IV SCH (06:00)
[2020-03-24] MEDS: ACCU-CHEK COMFORT CURVE STRIP VI SCH ×3 (06:33→17:44)
[2020-03-24] MEDS ORDERED: INSULIN LANTUS (GLARGINE) 1 /0.01ml (100units/ml) SC SCH (07:00)
[2020-03-24 08:00] VITALS: BP 111/70
[2020-03-24] MEDS: FERROUS SULFATE 325 MG TAB PO SCH ×3 (08:00→17:33)
[2020-03-24 08:27] LABS: Basophils # (auto) 0.1 10 ^3/uL (0-0.2); Eosinophils # (auto) 0.2 10 ^3/uL (0-0.8); Hemoglobin 9.9 g/dL (13.5-17.5); Neutrophils # (auto) 4.1 10 ^3/uL (1.6-8.6)
[2020-03-24 08:30] LABS: Eosinophils % (auto) 3.4 % (0.0-7.0); Hematocrit 31.9 % (41.0-53.0); Mean Corpuscular Hemoglobin 24.2 pg (28.0-32.0); Mean Corpuscular Hgb Conc. 31.1 g/dL (32.0-36.0); Monocytes # (auto) 0.5 10 ^3/uL (0-1.3); Monocytes % (auto) 7.1 % (0.0-12.0); Neutrophils % (auto) 59.5 % (37.0-80.0); Platelet Count (auto) 292 10^3/uL (140-450); Red Blood Cells 4.09 10^6/uL (4.5-5.90); Red Cell Distribution Width 16.1 % (11.8-14.3); White Blood Cell 6.9 10^3/uL (4.4-10.8)
[2020-03-24 08:42] LABS: BUN/Creatinine Ratio 15.1; Potassium 4.4 mmol/L (3.5-5.1)
[2020-03-24] MEDS: LOSARTAN POTASSIUM 25 MG TAB PO SCH (09:26)
[2020-03-24] MEDS: ASPirin 81 mg TAB PO SCH (09:26)
[2020-03-24] MEDS: FAMOTIDINE 20 MG TAB PO SCH ×2 (09:26→22:05)
[2020-03-24] MEDS: SODIUM CHLOR 0.9% PF (SALINE LOCK) 10ML VIAL/SYR IV SCH ×2 (09:26→22:04)
[2020-03-24] MEDS ORDERED: ceFAZolin 1GM VL ONE (09:42)
[2020-03-24] MEDS ORDERED: ROPIVACAINE 0.5% (5MG/ML) 20ML AMPULE IJ ONE (09:42)
[2020-03-24] MEDS ORDERED: NEOMYCIN-BACITRACIN-POLYM 15GM TOP OINT TOP ONE (09:45)
[2020-03-24] MEDS ORDERED: ceFAZolin 1GM/50ML 50 ML IV ONE (10:05)
[2020-03-24] MEDS ORDERED: LIDOCAINE 1% (LOCAL ANESTH.) PF 5ml SDV ONE (10:10)
[2020-03-24] MEDS ORDERED: PROPOFOL 10 MG/ML 20 ML IV ONE (10:12)
[2020-03-24] MEDS ORDERED: fentaNYL CITRATE 100 MCG/2 ML VL ONE (10:14)
[2020-03-24] MEDS ORDERED: MIDAZOLAM HCL 1MG/1ML-2 ML VIAL ONE ×2 (10:16→10:17)
[2020-03-24] MEDS ORDERED: METOCLOPRAMIDE HCL 5MG/ml INJ 2ml VIAL ONE (10:17)
[2020-03-24] MEDS ORDERED: diphenhdrAMINE HCL 50 MG/1 ML VL ONE (10:17)
[2020-03-24] MEDS ORDERED: NALOXONE HCL 0.4 MG/ML VIAL IV PRN (10:30)
[2020-03-24] MEDS ORDERED: HYDROmorphone HCL 2 MG/ML VL IV PRN ×2 (10:30)
[2020-03-24] MEDS ORDERED: ONDANSETRON HCL 4 MG/2 ML VIAL IV PRN (10:30)
[2020-03-24] MEDS ORDERED: ACCU-CHEK COMFORT CURVE STRIP VI ONE (10:30)
[2020-03-24] MEDS ORDERED: ePHEDrine SULFATE 50 MG/ML AMP ONE (10:44)
[2020-03-24] MEDS ORDERED: SODIUM CHLORIDE LOCK 10 ML ONE (10:44)
[2020-03-24 12:00] VITALS: BP 128/80
[2020-03-24] MEDS: MORPHINE SULF INJ 2 MG/ML SYRINGE 1ML IV PRN ×2 (16:07→21:46)
[2020-03-24 16:48] VITALS: BP 119/75
[2020-03-24 22:00] VITALS: BP 137/91
[2020-03-24] MEDS: ATORVASTATIN 20 MG TAB PO SCH (22:05)
[2020-03-25] MEDS: INSULIN LANTUS (GLARGINE) 1 /0.01ml (100units/ml) SC SCH ×3 (00:50→22:02)
[2020-03-25] MEDS: ACCU-CHEK COMFORT CURVE STRIP VI SCH ×4 (00:51→18:29)
[2020-03-25] MEDS: InsuLIN REG 1unit/0.01ml Soln (100units/ml) SC SCH ×4 (00:51→18:29)
[2020-03-25] MEDS: MORPHINE SULF INJ 2 MG/ML SYRINGE 1ML IV PRN ×3 (04:38→14:36)
[2020-03-25 05:00] VITALS: BP 106/59
[2020-03-25] MEDS: MEROPENEM 1GM IVPB 100 ML IV SCH ×3 (06:09→22:26)
[2020-03-25] MEDS: GABAPENTIN 300 MG CAP PO SCH ×3 (06:10→22:26)
[2020-03-25] MEDS: SODIUM CHLOR 0.9% PF (SALINE LOCK) 10ML VIAL/SYR IV SCH ×2 (08:48→22:25)
[2020-03-25] MEDS: LOSARTAN POTASSIUM 25 MG TAB PO SCH (08:48)
[2020-03-25] MEDS: FERROUS SULFATE 325 MG TAB PO SCH ×3 (08:48→18:27)
[2020-03-25] MEDS: ASPirin 81 mg TAB PO SCH (08:48)
[2020-03-25] MEDS: FAMOTIDINE 20 MG TAB PO SCH ×2 (08:48→22:02)
[2020-03-25 08:49] VITALS: BP 114/64
[2020-03-25 13:10] VITALS: BP 125/79
[2020-03-25] MEDS ORDERED: VANCOMYCIN PER PHARMACY 0 MG IV SCH (16:00)
[2020-03-25 16:55] VITALS: BP 139/84
[2020-03-25] MEDS: VANCOMYCIN 1GM/250ML 250 ML IV SCH (18:28)
[2020-03-25 21:47] VITALS: BP 125/69
[2020-03-25] MEDS: ATORVASTATIN 20 MG TAB PO SCH (22:25)
[2020-03-26] MEDS: ACCU-CHEK COMFORT CURVE STRIP VI SCH ×4 (00:12→17:47)
[2020-03-26] MEDS: MORPHINE SULF INJ 2 MG/ML SYRINGE 1ML IV PRN ×4 (00:13→20:49)
[2020-03-26] MEDS: InsuLIN REG 1unit/0.01ml Soln (100units/ml) SC SCH ×4 (00:16→17:47)
[2020-03-26] MEDS: VANCOMYCIN 1GM/250ML 250 ML IV SCH ×3 (01:27→20:20)
[2020-03-26] MEDS: MEROPENEM 1GM IVPB 100 ML IV SCH ×3 (05:44→22:20)
[2020-03-26] MEDS: GABAPENTIN 300 MG CAP PO SCH ×3 (05:44→22:03)
[2020-03-26] MEDS: INSULIN LANTUS (GLARGINE) 1 /0.01ml (100units/ml) SC SCH ×2 (06:56→21:57)
[2020-03-26 07:32] LABS: Basophils # (auto) 0 10 ^3/uL (0-0.2); Basophils % (auto) 0.5 % (0.0-2.0); Eosinophils # (auto) 0.3 10 ^3/uL (0-0.8); Eosinophils % (auto) 2.9 % (0.0-7.0); Hematocrit 26.5 % (41.0-53.0); Hemoglobin 8.4 g/dL (13.5-17.5); Lymphocytes # (auto) 2.7 10 ^3/uL (0.4-5.4); Lymphocytes % (auto) 30.5 % (10.0-50.0); Mean Corpuscular Hemoglobin 25.1 pg (28.0-32.0); Mean Corpuscular Hgb Conc. 31.9 g/dL (32.0-36.0); Mean Corpuscular Volume 78.8 fL (80.0-100.0); Monocytes # (auto) 0.9 10 ^3/uL (0-1.3); Monocytes % (auto) 9.9 % (0.0-12.0); Neutrophils % (auto) 56.2 % (37.0-80.0); Nucleated Red Blood Cells % 0.2 %; Platelet Count (auto) 357 10^3/uL (140-450); Red Blood Cells 3.36 10^6/uL (4.5-5.90); Red Cell Distribution Width 16.3 % (11.8-14.3)
[2020-03-26 07:48] LABS: Calcium 8.6 mg/dL (8.5-10.1); Potassium 4.6 mmol/L (3.5-5.1)
[2020-03-26] MEDS: FERROUS SULFATE 325 MG TAB PO SCH ×3 (08:51→17:46)
[2020-03-26] MEDS: FAMOTIDINE 20 MG TAB PO SCH ×2 (08:51→22:04)
[2020-03-26] MEDS: SODIUM CHLOR 0.9% PF (SALINE LOCK) 10ML VIAL/SYR IV SCH ×2 (08:52→22:03)
[2020-03-26] MEDS: ASPirin 81 mg TAB PO SCH (08:52)
[2020-03-26] MEDS: LOSARTAN POTASSIUM 25 MG TAB PO SCH (08:55)
[2020-03-26 16:57] VITALS: BP 135/67
[2020-03-26] MEDS: LORazepam 0.5 MG TAB PO PRN (20:49)
[2020-03-26 22:00] VITALS: BP 127/72
[2020-03-26] MEDS: ATORVASTATIN 20 MG TAB PO SCH (22:03)
[2020-03-27] MEDS: ACCU-CHEK COMFORT CURVE STRIP VI SCH ×4 (00:18→18:30)
[2020-03-27] MEDS: InsuLIN REG 1unit/0.01ml Soln (100units/ml) SC SCH ×4 (00:19→18:30)
[2020-03-27] MEDS: VANCOMYCIN 1GM/250ML 250 ML IV SCH ×2 (03:14→09:45)
[2020-03-27 05:00] VITALS: BP 133/71
[2020-03-27 05:29] LABS: Basophils # (auto) 0.1 10 ^3/uL (0-0.2); Eosinophils # (auto) 0.3 10 ^3/uL (0-0.8); Eosinophils % (auto) 2.7 % (0.0-7.0); Mean Corpuscular Hgb Conc. 32.3 g/dL (32.0-36.0)
[2020-03-27 05:31] LABS: Basophils % (auto) 0.7 % (0.0-2.0); Hematocrit 24.1 % (41.0-53.0); Hemoglobin 7.8 g/dL (13.5-17.5); Lymphocytes # (auto) 2.9 10 ^3/uL (0.4-5.4); Lymphocytes % (auto) 28.1 % (10.0-50.0); Mean Corpuscular Hemoglobin 25.7 pg (28.0-32.0); Mean Corpuscular Volume 79.5 fL (80.0-100.0); Monocytes % (auto) 9.6 % (0.0-12.0); Neutrophils % (auto) 58.9 % (37.0-80.0); Nucleated Red Blood Cells % 0.2 %; Platelet Count (auto) 387 10^3/uL (140-450); Red Blood Cells 3.03 10^6/uL (4.5-5.90); Red Cell Distribution Width 16.2 % (11.8-14.3); White Blood Cell 10.2 10^3/uL (4.4-10.8)
[2020-03-27 05:48] LABS: BUN/Creatinine Ratio 17.4; Calcium 8.4 mg/dL (8.5-10.1); Potassium 4.3 mmol/L (3.5-5.1)
[2020-03-27] MEDS: GABAPENTIN 300 MG CAP PO SCH ×2 (06:29→14:37)
[2020-03-27] MEDS: MEROPENEM 1GM IVPB 100 ML IV SCH (06:29)
[2020-03-27] MEDS: INSULIN LANTUS (GLARGINE) 1 /0.01ml (100units/ml) SC SCH (06:37)
[2020-03-27 07:45] VITALS: BP 122/73
[2020-03-27] MEDS: FERROUS SULFATE 325 MG TAB PO SCH ×3 (07:45→17:52)
[2020-03-27 09:09] VITALS: BP 122/73
[2020-03-27] MEDS: FAMOTIDINE 20 MG TAB PO SCH (09:44)
[2020-03-27] MEDS: LOSARTAN POTASSIUM 25 MG TAB PO SCH (09:44)
[2020-03-27] MEDS: ASPirin 81 mg TAB PO SCH (09:44)
[2020-03-27] MEDS: SODIUM CHLOR 0.9% PF (SALINE LOCK) 10ML VIAL/SYR IV SCH (09:52)
[2020-03-27 13:00] VITALS: BP 136/80
[2020-03-27 16:40] VITALS: BP 130/80
[2020-03-27 17:00] VITALS: BP 146/83
[2020-03-27] MEDS: HYDROcodone-ACET 5/325MG TAB PO PRN (17:52)
[2020-03-27] MEDS ORDERED: CIPROFLOXACIN 400MG/200ML 200 ML IV SCH (22:00)
== END 2020-03-27 19:00 | disposition home health service (06) | DRG 405 ==
LOC: ER 04:58 → EDBD 04:58 → TELE 04:59 → TELE-WESTW 12:14
PROVIDERS: ADMIT Hospitalist; ATTEND Internal Medicine Nephrology
PROC: 0Y6V0Z0 Detachment at Right 4th Toe, Complete, Open Approach (ICD-10-PCS; principal; 2020-03-24 10:19)
DX: E11.00 Type 2 diabetes mellitus with hyperosmolarity without nonketotic hyperglycemic-hyperosmolar coma (NKHHC) (principal); E87.4 Mixed disorder of acid-base balance; L03.115 Cellulitis of right lower limb; E11.69 Type 2 diabetes mellitus with other specified complication; D69.6 Thrombocytopenia, unspecified; E87.1 Hypo-osmolality and hyponatremia; F20.9 Schizophrenia, unspecified; L97.519 Non-pressure chronic ulcer of other part of right foot with unspecified severity; E11.40 Type 2 diabetes mellitus with diabetic neuropathy, unspecified; L97.419 Non-pressure chronic ulcer of right heel and midfoot with unspecified severity; E11.621 Type 2 diabetes mellitus with foot ulcer; Z20.828 Contact with and (suspected) exposure to other viral communicable diseases; F19.10 Other psychoactive substance abuse, uncomplicated; F10.959 Alcohol use, unspecified with alcohol-induced psychotic disorder, unspecified; Y90.0 Blood alcohol level of less than 20 mg/100 ml; E87.6 Hypokalemia; I73.9 Peripheral vascular disease, unspecified; E78.5 Hyperlipidemia, unspecified; I10 Essential (primary) hypertension; K21.9 Gastro-esophageal reflux disease without esophagitis; J44.9 Chronic obstructive pulmonary disease, unspecified; D64.9 Anemia, unspecified; E86.0 Dehydration; F31.9 Bipolar disorder, unspecified; F12.10 Cannabis abuse, uncomplicated; F14.10 Cocaine abuse, uncomplicated; M86.8X7 Other osteomyelitis, ankle and foot; E11.51 Type 2 diabetes mellitus with diabetic peripheral angiopathy without gangrene; S92.911A Unspecified fracture of right toe(s), initial encounter for closed fracture; F15.90 Other stimulant use, unspecified, uncomplicated; R18.8 Other ascites; F17.210 Nicotine dependence, cigarettes, uncomplicated; Z79.4 Long term (current) use of insulin; Z68.20 Body mass index [BMI] 20.0-20.9, adult; Z91.19 Patient's noncompliance with other medical treatment and regimen; Z71.6 Tobacco abuse counseling; Z89.029 Acquired absence of unspecified finger(s); Z59.0 Homelessness; Z79.899 Other long term (current) drug therapy; Z80.6 Family history of leukemia; Z85.6 Personal history of leukemia; Z91.14 Patient's other noncompliance with medication regimen; Z91.81 History of falling
CPT/HCPCS: 36415; 36569; 36600; 70450; 71045; 73700; 73720; 75635; 80048; 80053; 80061; 80202; 80307; 81001; 82270; 82565; 82805; 82962; 83036; 83605; 83880; 84132; 84484; 85025; 85610; 85730; 86850; 86900; 86901; 87040; 87070; 87075; 87077; 87081; 87086; 87186; 87205; 87426; 93005; 93926; 93971; 99291; G0378; J0690; J1815; J2001; J2185; J2250; J2543; J2704; J7060

== ENCOUNTER 2020-04-07 16:21 | Inpatient (IN) | payer MEDICAID ==
[~2020-04-07] VITALS: Ht 188 cm; Wt 102.5 kg
[~2020-04-07 16:21] MED LIST changes: +IBUP600T27 PO; -INSLANTI SC; +INSU100I44 SC; +INSU1INJ19 SC; +MIRT1TAB38 PO; -MIRT30TA OR
[2020-04-07] MEDS ORDERED: LABETALOL HCL 5 MG/ML 4ML SYRINGE IV ONE (17:15)
[2020-04-07 18:02] LABS: Lactic Acid w/Reflex 2.4 mmol/L (0.4-2.0)
[2020-04-07] MEDS ORDERED: NITROGLYCERIN 0.4 MG SL TAB SL PRN ×2 (18:30→19:30)
[2020-04-07] MEDS ORDERED: MORPHINE SULF INJ 2 MG/ML SYRINGE 1ML IV PRN ×2 (18:30→19:30)
[2020-04-07] MEDS ORDERED: ACETAMINOPHEN 500 MG TAB PO ONE (18:45)
[2020-04-07 19:06] LABS: Eosinophils % (auto) 0.3 % (0.0-7.0); Mean Corpuscular Volume 77.7 fL (80.0-100.0); Platelet Count (auto) 406 10^3/uL (140-450); White Blood Cell 14.9 10^3/uL (4.4-10.8)
[2020-04-07 19:08] LABS: Basophils # (auto) 0 10 ^3/uL (0-0.2); Basophils % (auto) 0.3 % (0.0-2.0); Eosinophils # (auto) 0 10 ^3/uL (0-0.8); Hematocrit 25.1 % (41.0-53.0); Hemoglobin 7.8 g/dL (13.5-17.5); Lymphocytes # (auto) 1.1 10 ^3/uL (0.4-5.4); Lymphocytes % (auto) 7.3 % (10.0-50.0); Mean Corpuscular Hemoglobin 24.2 pg (28.0-32.0); Mean Corpuscular Hgb Conc. 31.1 g/dL (32.0-36.0); Monocytes # (auto) 1.3 10 ^3/uL (0-1.3); Monocytes % (auto) 8.5 % (0.0-12.0); Neutrophils # (auto) 12.5 10 ^3/uL (1.6-8.6); Neutrophils % (auto) 83.6 % (37.0-80.0); Red Blood Cells 3.23 10^6/uL (4.5-5.90); Red Cell Distribution Width 19.4 % (11.8-14.3)
[2020-04-07 19:16] LABS: Albumin 2.1 g/dL (3.4-5.0); Calcium 8.4 mg/dL (8.5-10.1); Potassium 3.2 mmol/L (3.5-5.1)
[2020-04-07 19:19] LABS: BUN/Creatinine Ratio 7.4; Bilirubin, Total 0.6 mg/dL (0.2-1.0); Total Protein 7.3 g/dL (6.4-8.2)
[2020-04-07 19:23] LABS: INR 1.09 (0.9-1.15); Partial Thromboplastin Time 32.2 sec (23.0-31.2)
[2020-04-07] MEDS ORDERED: VANCOMYCIN PER PHARMACY 0 MG IV SCH (19:30)
[2020-04-07] MEDS ORDERED: hydrALAZINE HCL 25 MG TAB PO PRN (19:30)
[2020-04-07] MEDS ORDERED: DEXTROSE (50%) 50ML SYRG IV PRN (19:30)
[2020-04-07] MEDS ORDERED: DOCUSATE SOD 100 MG CAP PO PRN (19:30)
[2020-04-07] MEDS ORDERED: NIFEdipine ER 30 MG TAB PO ONE (19:30)
[2020-04-07] MEDS ORDERED: LORazepam 0.5 MG TAB PO PRN (19:30)
[2020-04-07] MEDS ORDERED: ALUM & MAG HYDROX-SIMETH LIQ(MAALOX) 30 ML PO PRN (19:30)
[2020-04-07] MEDS ORDERED: PIPERACILLIN-TAZOB 3.375GM 100 ML IV ONE (19:30)
[2020-04-07] MEDS: SODIUM CHLORIDE 0.9% 1,000 ML IV SCH (20:41)
[2020-04-07 20:52] LABS: Cholesterol 113 mg/dL (< 200); HDL Cholesterol 25 mg/dL (40-59); LDL Cholesterol 51 mg/dL (< 100); Triglycerides 114 mg/dL (< 150)
[2020-04-07 21:08] VITALS: BP 124/69
[2020-04-07] MEDS: MORPHINE SULF INJ 2 MG/ML SYRINGE 1ML IV PRN (21:22)
[2020-04-07] MEDS ORDERED: IBUPROFEN 600 MG TAB PO PRN (22:00)
[2020-04-07] MEDS: ACCU-CHEK COMFORT CURVE STRIP VI SCH (22:00)
[2020-04-07] MEDS: VANCOMYCIN 1GM/250ML 250 ML IV SCH (23:00)
[2020-04-07] MEDS: FERROUS SULFATE 325 MG TAB PO SCH (23:08)
[2020-04-07] MEDS: DOCUSATE SOD 100 MG CAP PO SCH (23:08)
[2020-04-07] MEDS: MIRTAZAPINE 30 MG TAB PO SCH (23:09)
[2020-04-07] MEDS: QUEtiapine FUMARATE 100 MG TAB PO SCH (23:09)
[2020-04-07] MEDS: GABAPENTIN 400 MG CAP PO SCH (23:09)
[2020-04-07] MEDS: ATORVASTATIN 20 MG TAB PO SCH (23:09)
[2020-04-07] MEDS: InsuLIN REG 1unit/0.01ml Soln (100units/ml) SC SCH (23:30)
[2020-04-08] MEDS ORDERED: POTASSIUM CHL 20MEQ/100ML 100 ML IV ONE (01:00)
[2020-04-08] MEDS: ACETAMINOPHEN 325 MG TAB PO PRN ×2 (03:50→21:27)
[2020-04-08] MEDS: MORPHINE SULF INJ 2 MG/ML SYRINGE 1ML IV PRN ×2 (03:53→12:54)
[2020-04-08] MEDS: GABAPENTIN 400 MG CAP PO SCH ×3 (05:42→21:24)
[2020-04-08] MEDS: ACCU-CHEK COMFORT CURVE STRIP VI SCH ×4 (06:44→21:06)
[2020-04-08] MEDS: PIPERACILLIN-TAZOB 3.375GM 100 ML IV SCH ×3 (06:44→18:00)
[2020-04-08] MEDS: InsuLIN REG 1unit/0.01ml Soln (100units/ml) SC SCH ×4 (07:00→21:08)
[2020-04-08] MEDS: VANCOMYCIN 1GM/250ML 250 ML IV SCH ×2 (07:26→16:00)
[2020-04-08] MEDS: HYDROcodone-ACET 5/325MG TAB PO PRN ×2 (07:35→19:06)
[2020-04-08 09:00] VITALS: BP 103/55
[2020-04-08] MEDS: FERROUS SULFATE 325 MG TAB PO SCH ×2 (09:43→18:00)
[2020-04-08] MEDS: ASPirin 81 mg TAB PO SCH (09:43)
[2020-04-08] MEDS: DOCUSATE SOD 100 MG CAP PO SCH ×2 (09:43→21:25)
[2020-04-08] MEDS: POTASSIUM CHL 20 Meq TABLET PO SCH (09:44)
[2020-04-08] MEDS: PANTOPRAZOLE 40 MG TAB PO SCH (09:45)
[2020-04-08] MEDS ORDERED: LOSARTAN POTASSIUM 25 MG TAB PO SCH (10:00)
[2020-04-08] MEDS: LOSARTAN POTASSIUM 50 MG TAB PO SCH (10:00)
[2020-04-08] MEDS: NIFEdipine ER 30 MG TAB PO SCH (10:00)
[2020-04-08 13:00] VITALS: BP 109/57
[2020-04-08] MEDS: SODIUM CHLORIDE 0.9% 1,000 ML IV SCH (15:00)
[2020-04-08 17:00] VITALS: BP 117/65
[2020-04-08] MEDS: MIRTAZAPINE 30 MG TAB PO SCH (21:24)
[2020-04-08] MEDS: ATORVASTATIN 20 MG TAB PO SCH (21:24)
[2020-04-08] MEDS: QUEtiapine FUMARATE 100 MG TAB PO SCH (21:28)
[2020-04-08 22:00] VITALS: BP 129/69
[2020-04-09] VITALS (15 sets, daily range): BP systolic 104–146; BP diastolic 58–84
[2020-04-09] MEDS: VANCOMYCIN 1GM/250ML 250 ML IV SCH ×4 (00:32→23:20)
[2020-04-09] MEDS: PIPERACILLIN-TAZOB 3.375GM 100 ML IV SCH ×4 (02:03→18:00)
[2020-04-09] MEDS: GABAPENTIN 400 MG CAP PO SCH ×3 (05:14→21:27)
[2020-04-09 05:51] LABS: Basophils # (auto) 0 10 ^3/uL (0-0.2); Basophils % (auto) 0.2 % (0.0-2.0); Mean Corpuscular Hgb Conc. 30.9 g/dL (32.0-36.0); Monocytes # (auto) 1.4 10 ^3/uL (0-1.3); Neutrophils # (auto) 14.4 10 ^3/uL (1.6-8.6)
[2020-04-09 05:53] LABS: Eosinophils # (auto) 0.2 10 ^3/uL (0-0.8); Eosinophils % (auto) 1.1 % (0.0-7.0); Hematocrit 21.7 % (41.0-53.0); Mean Corpuscular Hemoglobin 23.9 pg (28.0-32.0); Mean Corpuscular Volume 77.4 fL (80.0-100.0); Monocytes % (auto) 8.2 % (0.0-12.0); Neutrophils % (auto) 84.5 % (37.0-80.0); Platelet Count (auto) 384 10^3/uL (140-450); Red Cell Distribution Width 19.7 % (11.8-14.3)
[2020-04-09 05:57] LABS: Hemoglobin 6.7 g/dL (13.5-17.5)
[2020-04-09 06:09] LABS: BUN/Creatinine Ratio 13.7; Calcium 8.6 mg/dL (8.5-10.1); Potassium 3.6 mmol/L (3.5-5.1)
[2020-04-09] MEDS: SODIUM CHLORIDE 0.9% 1,000 ML IV SCH ×2 (06:23→21:30)
[2020-04-09] MEDS: ACCU-CHEK COMFORT CURVE STRIP VI SCH ×4 (06:24→21:34)
[2020-04-09] MEDS: InsuLIN REG 1unit/0.01ml Soln (100units/ml) SC SCH ×4 (06:29→22:00)
[2020-04-09] MEDS: POTASSIUM CHL 20 Meq TABLET PO SCH (08:30)
[2020-04-09] MEDS: DOCUSATE SOD 100 MG CAP PO SCH ×2 (08:31→21:27)
[2020-04-09] MEDS: LOSARTAN POTASSIUM 50 MG TAB PO SCH (08:31)
[2020-04-09] MEDS: PANTOPRAZOLE 40 MG TAB PO SCH (08:32)
[2020-04-09] MEDS: NIFEdipine ER 30 MG TAB PO SCH (08:32)
[2020-04-09] MEDS: ASPirin 81 mg TAB PO SCH (08:32)
[2020-04-09] MEDS: FERROUS SULFATE 325 MG TAB PO SCH ×2 (08:33→17:30)
[2020-04-09] MEDS: ACETAMINOPHEN 325 MG TAB PO PRN (11:19)
[2020-04-09] MEDS: HYDROcodone-ACET 5/325MG TAB PO PRN (15:34)
[2020-04-09] MEDS: ATORVASTATIN 20 MG TAB PO SCH (21:27)
[2020-04-09] MEDS: QUEtiapine FUMARATE 100 MG TAB PO SCH (21:28)
[2020-04-09] MEDS: MIRTAZAPINE 30 MG TAB PO SCH (21:28)
[2020-04-09] MEDS: MORPHINE SULF INJ 2 MG/ML SYRINGE 1ML IV PRN (21:56)
[2020-04-10] MEDS: PIPERACILLIN-TAZOB 3.375GM 100 ML IV SCH ×4 (00:55→17:51)
[2020-04-10 05:11] VITALS: BP 103/59
[2020-04-10 05:34] LABS: Basophils # (auto) 0 10 ^3/uL (0-0.2); Basophils % (auto) 0.3 % (0.0-2.0); Hemoglobin 8.1 g/dL (13.5-17.5); Mean Corpuscular Hgb Conc. 31.3 g/dL (32.0-36.0); Monocytes # (auto) 0.9 10 ^3/uL (0-1.3); Monocytes % (auto) 7.2 % (0.0-12.0); Red Cell Distribution Width 19.7 % (11.8-14.3)
[2020-04-10 05:36] LABS: Eosinophils # (auto) 0.3 10 ^3/uL (0-0.8); Eosinophils % (auto) 2.2 % (0.0-7.0); Hematocrit 25.8 % (41.0-53.0); Lymphocytes % (auto) 8.2 % (10.0-50.0); Mean Corpuscular Hemoglobin 24.6 pg (28.0-32.0); Mean Corpuscular Volume 78.4 fL (80.0-100.0); Neutrophils % (auto) 82.1 % (37.0-80.0); Nucleated Red Blood Cells % 0.1 %; Platelet Count (auto) 359 10^3/uL (140-450); Red Blood Cells 3.29 10^6/uL (4.5-5.90); White Blood Cell 12.2 10^3/uL (4.4-10.8)
[2020-04-10 05:52] LABS: INR 1.08 (0.9-1.15); Partial Thromboplastin Time 30.8 sec (23.0-31.2)
[2020-04-10 05:53] LABS: Potassium 3.9 mmol/L (3.5-5.1)
[2020-04-10 05:59] LABS: BUN/Creatinine Ratio 18.3; Calcium 7.9 mg/dL (8.5-10.1)
[2020-04-10] MEDS: GABAPENTIN 400 MG CAP PO SCH ×3 (06:00→21:14)
[2020-04-10] MEDS: ACCU-CHEK COMFORT CURVE STRIP VI SCH ×4 (06:29→21:08)
[2020-04-10] MEDS: InsuLIN REG 1unit/0.01ml Soln (100units/ml) SC SCH ×4 (06:32→21:10)
[2020-04-10] MEDS: VANCOMYCIN 1GM/250ML 250 ML IV SCH ×3 (06:51→23:00)
[2020-04-10] MEDS: FERROUS SULFATE 325 MG TAB PO SCH ×2 (08:00→17:51)
[2020-04-10] MEDS ORDERED: InsuLIN REG 1unit/0.01ml Soln (100units/ml) SC ONE ×2 (08:30→11:15)
[2020-04-10] MEDS ORDERED: InsuLIN REG 1unit/0.01ml Soln (100units/ml) IV ONE ×2 (08:30→11:15)
[2020-04-10 09:00] VITALS: BP 108/64
[2020-04-10] MEDS: PANTOPRAZOLE 40 MG TAB PO SCH (10:00)
[2020-04-10] MEDS: LOSARTAN POTASSIUM 50 MG TAB PO SCH (10:00)
[2020-04-10] MEDS: DOCUSATE SOD 100 MG CAP PO SCH ×2 (10:00→21:13)
[2020-04-10] MEDS: ASPirin 81 mg TAB PO SCH (10:00)
[2020-04-10] MEDS: NIFEdipine ER 30 MG TAB PO SCH (10:00)
[2020-04-10] MEDS: POTASSIUM CHL 20 Meq TABLET PO SCH (10:00)
[2020-04-10] MEDS ORDERED: InsuLIN REG 1unit/0.01ml Soln (100units/ml) ONE (11:13)
[2020-04-10] MEDS ORDERED: ceFAZolin 1GM/50ML 50 ML IV ONE (11:52)
[2020-04-10] MEDS ORDERED: ceFAZolin 1GM VL ONE (11:54)
[2020-04-10] MEDS ORDERED: NEOMYCIN-BACITRACIN-POLYM 15GM TOP OINT TOP ONE (11:54)
[2020-04-10] MEDS ORDERED: SUCCINYLCHOLINE CHLORIDE 20 MG/ML 10ML VIAL IV ONE (12:04)
[2020-04-10] MEDS ORDERED: fentaNYL CITRATE 100 MCG/2 ML VL ONE ×2 (12:08→12:14)
[2020-04-10] MEDS ORDERED: MIDAZOLAM HCL 1MG/1ML-2 ML VIAL ONE (12:08)
[2020-04-10] MEDS ORDERED: PROPOFOL 10 MG/ML 20 ML IV ONE (12:12)
[2020-04-10] MEDS ORDERED: ONDANSETRON HCL 4 MG/2 ML VIAL IV PRN (13:00)
[2020-04-10] MEDS ORDERED: fentaNYL CITRATE 100 MCG/2 ML VL IV PRN (13:00)
[2020-04-10] MEDS ORDERED: hydrALAZINE HCL 20 MG/ML VL IV PRN (13:00)
[2020-04-10] MEDS ORDERED: MORPHINE SULFATE 4 MG/ML SYR/VIAL IV PRN (13:00)
[2020-04-10] MEDS ORDERED: ePHEDrine SULFATE 50 MG/ML AMP IV PRN (13:00)
[2020-04-10] MEDS: SODIUM CHLORIDE 0.9% 1,000 ML IV SCH (13:52)
[2020-04-10] MEDS: ACETAMINOPHEN 325 MG TAB PO PRN (16:26)
[2020-04-10 17:00] VITALS: BP 155/83
[2020-04-10] MEDS: HYDROcodone-ACET 5/325MG TAB PO PRN (18:02)
[2020-04-10 20:00] VITALS: BP 131/55
[2020-04-10] MEDS: MORPHINE SULF INJ 2 MG/ML SYRINGE 1ML IV PRN (21:06)
[2020-04-10] MEDS: ONDANSETRON HCL 4 MG/2 ML VIAL IV PRN (21:06)
[2020-04-10] MEDS: MIRTAZAPINE 30 MG TAB PO SCH (21:10)
[2020-04-10] MEDS: ATORVASTATIN 20 MG TAB PO SCH (21:14)
[2020-04-10] MEDS: QUEtiapine FUMARATE 100 MG TAB PO SCH (21:14)
[2020-04-10 21:44] VITALS: BP 131/55
[2020-04-11] MEDS: PIPERACILLIN-TAZOB 3.375GM 100 ML IV SCH ×4 (00:06→17:29)
[2020-04-11] MEDS: MORPHINE SULF INJ 2 MG/ML SYRINGE 1ML IV PRN ×3 (02:04→21:53)
[2020-04-11] MEDS: ONDANSETRON HCL 4 MG/2 ML VIAL IV PRN (02:22)
[2020-04-11 05:30] VITALS: BP 129/61
[2020-04-11 05:38] LABS: Basophils # (auto) 0.1 10 ^3/uL (0-0.2); Eosinophils # (auto) 0.2 10 ^3/uL (0-0.8); Monocytes # (auto) 1.1 10 ^3/uL (0-1.3); Platelet Count (auto) 420 10^3/uL (140-450); White Blood Cell 10.7 10^3/uL (4.4-10.8)
[2020-04-11 05:46] LABS: Basophils % (auto) 0.6 % (0.0-2.0); Eosinophils % (auto) 2.1 % (0.0-7.0); Hematocrit 25.7 % (41.0-53.0); Hemoglobin 8.1 g/dL (13.5-17.5); Lymphocytes # (auto) 1.3 10 ^3/uL (0.4-5.4); Lymphocytes % (auto) 12.2 % (10.0-50.0); Mean Corpuscular Hgb Conc. 31.5 g/dL (32.0-36.0); Mean Corpuscular Volume 79.3 fL (80.0-100.0); Monocytes % (auto) 10.5 % (0.0-12.0); Neutrophils % (auto) 74.6 % (37.0-80.0); Red Blood Cells 3.24 10^6/uL (4.5-5.90); Red Cell Distribution Width 19.9 % (11.8-14.3)
[2020-04-11] MEDS: InsuLIN REG 1unit/0.01ml Soln (100units/ml) SC SCH ×4 (05:51→22:01)
[2020-04-11 05:58] LABS: Potassium 4.4 mmol/L (3.5-5.1)
[2020-04-11 06:01] LABS: BUN/Creatinine Ratio 13.5; Calcium 8.1 mg/dL (8.5-10.1)
[2020-04-11] MEDS: GABAPENTIN 400 MG CAP PO SCH ×3 (06:04→21:52)
[2020-04-11] MEDS: SODIUM CHLORIDE 0.9% 1,000 ML IV SCH ×2 (06:58→23:07)
[2020-04-11] MEDS: ACCU-CHEK COMFORT CURVE STRIP VI SCH ×4 (06:58→21:59)
[2020-04-11] MEDS: VANCOMYCIN 1GM/250ML 250 ML IV SCH ×3 (06:58→23:00)
[2020-04-11 09:23] VITALS: BP 131/75
[2020-04-11] MEDS: LOSARTAN POTASSIUM 50 MG TAB PO SCH (09:49)
[2020-04-11] MEDS: NIFEdipine ER 30 MG TAB PO SCH (09:50)
[2020-04-11] MEDS: HYDROcodone-ACET 5/325MG TAB PO PRN (09:51)
[2020-04-11] MEDS: DOCUSATE SOD 100 MG CAP PO SCH ×2 (09:51→21:51)
[2020-04-11] MEDS: POTASSIUM CHL 20 Meq TABLET PO SCH (09:51)
[2020-04-11] MEDS: FERROUS SULFATE 325 MG TAB PO SCH ×2 (09:52→17:29)
[2020-04-11] MEDS: ASPirin 81 mg TAB PO SCH (09:52)
[2020-04-11] MEDS: PANTOPRAZOLE 40 MG TAB PO SCH (09:52)
[2020-04-11 13:00] VITALS: BP 148/82
[2020-04-11 17:00] VITALS: BP 139/82
[2020-04-11 20:00] VITALS: BP 129/61
[2020-04-11 21:00] VITALS: BP 124/69
[2020-04-11] MEDS: MIRTAZAPINE 30 MG TAB PO SCH (21:52)
[2020-04-11] MEDS: ATORVASTATIN 20 MG TAB PO SCH (21:52)
[2020-04-11] MEDS: QUEtiapine FUMARATE 100 MG TAB PO SCH (21:53)
[2020-04-12] MEDS: PIPERACILLIN-TAZOB 3.375GM 100 ML IV SCH ×3 (00:10→12:02)
[2020-04-12] MEDS: MORPHINE SULF INJ 2 MG/ML SYRINGE 1ML IV PRN ×3 (03:37→21:52)
[2020-04-12 05:00] VITALS: BP 147/80
[2020-04-12] MEDS: GABAPENTIN 400 MG CAP PO SCH ×3 (05:52→21:28)
[2020-04-12] MEDS: InsuLIN REG 1unit/0.01ml Soln (100units/ml) SC SCH ×4 (05:54→21:32)
[2020-04-12] MEDS: ACCU-CHEK COMFORT CURVE STRIP VI SCH ×4 (05:54→21:31)
[2020-04-12] MEDS: VANCOMYCIN 1GM/250ML 250 ML IV SCH (06:47)
[2020-04-12 08:00] VITALS: BP 142/80
[2020-04-12] MEDS: FERROUS SULFATE 325 MG TAB PO SCH ×2 (08:04→17:27)
[2020-04-12 09:00] VITALS: BP 142/80
[2020-04-12] MEDS: LOSARTAN POTASSIUM 50 MG TAB PO SCH (10:32)
[2020-04-12] MEDS: ASPirin 81 mg TAB PO SCH (10:32)
[2020-04-12] MEDS: DOCUSATE SOD 100 MG CAP PO SCH ×2 (10:32→21:28)
[2020-04-12] MEDS: PANTOPRAZOLE 40 MG TAB PO SCH (10:33)
[2020-04-12] MEDS: NIFEdipine ER 30 MG TAB PO SCH (10:33)
[2020-04-12 13:00] VITALS: BP 154/91
[2020-04-12] MEDS ORDERED: LIDOCAINE 1% (LOCAL ANESTH.) PF 5ml SDV ID ONE (15:30)
[2020-04-12] MEDS ORDERED: LABETALOL HCL 5 MG/ML 4ML SYRINGE IV PRN (15:45)
[2020-04-12] MEDS: SODIUM CHLORIDE 0.9% 1,000 ML IV SCH (16:10)
[2020-04-12 17:00] VITALS: BP 97/60
[2020-04-12] MEDS ORDERED: CEFTRIAXONE SODIUM 2 GM in D5W 5% 50 ML IV ONE (18:00)
[2020-04-12] MEDS: metroNIDAZOLE 500 MG TAB PO SCH (21:27)
[2020-04-12] MEDS: QUEtiapine FUMARATE 100 MG TAB PO SCH (21:27)
[2020-04-12] MEDS: MIRTAZAPINE 30 MG TAB PO SCH (21:28)
[2020-04-12] MEDS: ATORVASTATIN 20 MG TAB PO SCH (21:29)
[2020-04-12] MEDS: SODIUM CHLOR 0.9% PF (SALINE LOCK) 10ML VIAL/SYR IV SCH (21:29)
[2020-04-12] MEDS: CIPROFLOXACIN HCL 500 MG TAB PO SCH (21:29)
[2020-04-12 21:37] VITALS: BP 154/89
[2020-04-12] MEDS: ceFAZolin 1GM 2 GM in D5W 5% 100 ML IV SCH (21:53)
[2020-04-12] MEDS ORDERED: AMPICILLIN & SULBACTAM SODIUM 3 GM in SODIUM CHL 0.9% 100 ML IV SCH (22:00)
[2020-04-13] MEDS: MORPHINE SULF INJ 2 MG/ML SYRINGE 1ML IV PRN ×3 (04:25→21:18)
[2020-04-13 05:15] VITALS: BP 150/89
[2020-04-13] MEDS: GABAPENTIN 400 MG CAP PO SCH ×3 (05:18→21:38)
[2020-04-13] MEDS: metroNIDAZOLE 500 MG TAB PO SCH ×3 (05:18→21:38)
[2020-04-13] MEDS: ceFAZolin 1GM 2 GM in D5W 5% 100 ML IV SCH ×3 (05:19→21:40)
[2020-04-13] MEDS: InsuLIN REG 1unit/0.01ml Soln (100units/ml) SC SCH ×5 (06:24→21:56)
[2020-04-13] MEDS: ACCU-CHEK COMFORT CURVE STRIP VI SCH ×4 (06:24→21:57)
[2020-04-13 06:41] LABS: Basophils # (auto) 0 10 ^3/uL (0-0.2); Basophils % (auto) 0.2 % (0.0-2.0); Eosinophils # (auto) 0.3 10 ^3/uL (0-0.8); White Blood Cell 9.2 10^3/uL (4.4-10.8)
[2020-04-13 06:43] LABS: Eosinophils % (auto) 3.5 % (0.0-7.0); Hematocrit 23.9 % (41.0-53.0); Hemoglobin 7.5 g/dL (13.5-17.5); Lymphocytes # (auto) 1.2 10 ^3/uL (0.4-5.4); Lymphocytes % (auto) 13.4 % (10.0-50.0); Mean Corpuscular Hemoglobin 24.9 pg (28.0-32.0); Mean Corpuscular Hgb Conc. 31.4 g/dL (32.0-36.0); Mean Corpuscular Volume 79.4 fL (80.0-100.0); Monocytes # (auto) 0.9 10 ^3/uL (0-1.3); Monocytes % (auto) 10.4 % (0.0-12.0); Neutrophils # (auto) 6.6 10 ^3/uL (1.6-8.6); Neutrophils % (auto) 72.5 % (37.0-80.0); Nucleated Red Blood Cells % 0.1 %; Platelet Count (auto) 442 10^3/uL (140-450); Red Blood Cells 3.01 10^6/uL (4.5-5.90)
[2020-04-13 07:05] LABS: Calcium 8.1 mg/dL (8.5-10.1); Potassium 4.4 mmol/L (3.5-5.1)
[2020-04-13 07:07] LABS: BUN/Creatinine Ratio 10.3
[2020-04-13] MEDS ORDERED: InsuLIN REG 1unit/0.01ml Soln (100units/ml) SC SCH (07:45)
[2020-04-13 08:00] VITALS: BP 143/86
[2020-04-13] MEDS: FERROUS SULFATE 325 MG TAB PO SCH ×2 (08:24→17:53)
[2020-04-13 08:43] VITALS: BP 143/86
[2020-04-13] MEDS: SODIUM CHLORIDE 0.9% 1,000 ML IV SCH ×2 (08:50→21:57)
[2020-04-13] MEDS: SODIUM CHLOR 0.9% PF (SALINE LOCK) 10ML VIAL/SYR IV SCH ×2 (09:56→21:40)
[2020-04-13] MEDS: ASPirin 81 mg TAB PO SCH (09:57)
[2020-04-13] MEDS: CIPROFLOXACIN HCL 500 MG TAB PO SCH ×2 (09:57→21:37)
[2020-04-13] MEDS: DOCUSATE SOD 100 MG CAP PO SCH ×2 (09:57→21:37)
[2020-04-13] MEDS: PANTOPRAZOLE 40 MG TAB PO SCH (09:58)
[2020-04-13] MEDS: NIFEdipine ER 30 MG TAB PO SCH (09:58)
[2020-04-13] MEDS: LOSARTAN POTASSIUM 50 MG TAB PO SCH (09:58)
[2020-04-13] MEDS: INSULIN LANTUS (GLARGINE) 1 /0.01ml (100units/ml) SC SCH ×2 (10:22→21:56)
[2020-04-13 12:53] VITALS: BP 137/75
[2020-04-13 17:00] VITALS: BP 139/79
[2020-04-13] MEDS: ATORVASTATIN 20 MG TAB PO SCH (21:37)
[2020-04-13] MEDS: QUEtiapine FUMARATE 100 MG TAB PO SCH ×2 (21:37→21:57)
[2020-04-13] MEDS: MIRTAZAPINE 30 MG TAB PO SCH (21:38)
[2020-04-13 21:44] VITALS: BP 125/77
[2020-04-14 05:00] VITALS: BP 159/86
[2020-04-14] MEDS: ceFAZolin 1GM 2 GM in D5W 5% 100 ML IV SCH ×3 (05:35→22:52)
[2020-04-14] MEDS: metroNIDAZOLE 500 MG TAB PO SCH ×3 (05:36→22:55)
[2020-04-14] MEDS: GABAPENTIN 400 MG CAP PO SCH ×3 (05:36→22:54)
[2020-04-14 06:20] LABS: Basophils # (auto) 0.1 10 ^3/uL (0-0.2); Hemoglobin 8.1 g/dL (13.5-17.5); Mean Corpuscular Hemoglobin 24.7 pg (28.0-32.0); Neutrophils # (auto) 8.5 10 ^3/uL (1.6-8.6); Red Blood Cells 3.26 10^6/uL (4.5-5.90)
[2020-04-14 06:24] LABS: Basophils % (auto) 0.5 % (0.0-2.0); Eosinophils # (auto) 0.3 10 ^3/uL (0-0.8); Hematocrit 25.4 % (41.0-53.0); Lymphocytes # (auto) 1.3 10 ^3/uL (0.4-5.4); Mean Corpuscular Hgb Conc. 31.8 g/dL (32.0-36.0); Mean Corpuscular Volume 77.9 fL (80.0-100.0); Monocytes # (auto) 0.9 10 ^3/uL (0-1.3); Monocytes % (auto) 7.9 % (0.0-12.0); Neutrophils % (auto) 76.6 % (37.0-80.0); Nucleated Red Blood Cells % 0.1 %; Platelet Count (auto) 500 10^3/uL (140-450); White Blood Cell 11.1 10^3/uL (4.4-10.8)
[2020-04-14 06:38] LABS: Potassium 4.3 mmol/L (3.5-5.1)
[2020-04-14 06:42] LABS: Red Cell Distribution Width 20.8 % (11.8-14.3)
[2020-04-14 06:43] LABS: BUN/Creatinine Ratio 13.6; Calcium 8.6 mg/dL (8.5-10.1)
[2020-04-14] MEDS: InsuLIN REG 1unit/0.01ml Soln (100units/ml) SC SCH ×4 (06:44→23:08)
[2020-04-14] MEDS: INSULIN LANTUS (GLARGINE) 1 /0.01ml (100units/ml) SC SCH ×2 (06:44→23:09)
[2020-04-14] MEDS: ACCU-CHEK COMFORT CURVE STRIP VI SCH ×4 (06:45→22:00)
[2020-04-14 09:00] VITALS: BP 165/92
[2020-04-14] MEDS: PANTOPRAZOLE 40 MG TAB PO SCH (09:49)
[2020-04-14] MEDS: CIPROFLOXACIN HCL 500 MG TAB PO SCH ×2 (09:49→22:55)
[2020-04-14] MEDS: NIFEdipine ER 30 MG TAB PO SCH (09:49)
[2020-04-14] MEDS: ASPirin 81 mg TAB PO SCH (09:49)
[2020-04-14] MEDS: SODIUM CHLOR 0.9% PF (SALINE LOCK) 10ML VIAL/SYR IV SCH ×2 (09:50→22:52)
[2020-04-14] MEDS: LOSARTAN POTASSIUM 50 MG TAB PO SCH (09:50)
[2020-04-14] MEDS: FERROUS SULFATE 325 MG TAB PO SCH ×2 (09:50→17:20)
[2020-04-14] MEDS: DOCUSATE SOD 100 MG CAP PO SCH ×2 (09:51→22:53)
[2020-04-14] MEDS: MORPHINE SULF INJ 2 MG/ML SYRINGE 1ML IV PRN ×2 (11:05→20:31)
[2020-04-14] MEDS ORDERED: CIP500T PO (12:17)
[2020-04-14] MEDS ORDERED: MET500T PO (12:17)
[2020-04-14 13:00] VITALS: BP 154/94
[2020-04-14 16:43] VITALS: BP 134/84
[2020-04-14] MEDS: SODIUM CHLORIDE 0.9% 1,000 ML IV SCH (18:10)
[2020-04-14 22:28] VITALS: BP 130/96
[2020-04-14] MEDS ORDERED: ceFAZolin 1GM VL ONE (22:36)
[2020-04-14] MEDS: QUEtiapine FUMARATE 100 MG TAB PO SCH (22:53)
[2020-04-14] MEDS: ATORVASTATIN 20 MG TAB PO SCH (22:54)
[2020-04-14] MEDS: MIRTAZAPINE 30 MG TAB PO SCH (22:55)
[2020-04-15 05:00] VITALS: BP_SYST 153; BP_SYST 163; BP_DIAS 109; BP_DIAS 93
[2020-04-15] MEDS: InsuLIN REG 1unit/0.01ml Soln (100units/ml) SC SCH ×3 (06:29→17:14)
[2020-04-15] MEDS: metroNIDAZOLE 500 MG TAB PO SCH ×2 (06:30→14:23)
[2020-04-15] MEDS: ACCU-CHEK COMFORT CURVE STRIP VI SCH ×3 (06:30→17:13)
[2020-04-15] MEDS: GABAPENTIN 400 MG CAP PO SCH ×2 (06:30→14:22)
[2020-04-15] MEDS: ceFAZolin 1GM 2 GM in D5W 5% 100 ML IV SCH ×2 (06:31→15:02)
[2020-04-15] MEDS ORDERED: INSULIN LANTUS (GLARGINE) 1 /0.01ml (100units/ml) SC SCH (07:00)
[2020-04-15 08:00] VITALS: BP 117/71
[2020-04-15] MEDS: FERROUS SULFATE 325 MG TAB PO SCH (08:30)
[2020-04-15] MEDS: ASPirin 81 mg TAB PO SCH (10:13)
[2020-04-15] MEDS: LOSARTAN POTASSIUM 50 MG TAB PO SCH (10:13)
[2020-04-15] MEDS: DOCUSATE SOD 100 MG CAP PO SCH (10:14)
[2020-04-15] MEDS: PANTOPRAZOLE 40 MG TAB PO SCH (10:14)
[2020-04-15] MEDS: SODIUM CHLOR 0.9% PF (SALINE LOCK) 10ML VIAL/SYR IV SCH (10:14)
[2020-04-15] MEDS: CIPROFLOXACIN HCL 500 MG TAB PO SCH (10:14)
[2020-04-15] MEDS: NIFEdipine ER 30 MG TAB PO SCH (11:05)
[2020-04-15] MEDS: SODIUM CHLORIDE 0.9% 1,000 ML IV SCH (11:06)
[2020-04-15 12:00] VITALS: BP 160/92
[2020-04-15 17:00] VITALS: BP_SYST 117; BP_SYST 158; BP_DIAS 71; BP_DIAS 87
== END 2020-04-15 18:15 | DRG 710 ==
LOC: EDUNIT# 16:21 → EDBD 16:21 → ER 16:21 → TELE 16:22 → TELE-CENTR 22:12 → TELE-EAST 04-08 04:45 → TELE-CENTR 04-08 12:40
PROVIDERS: ADMIT Hospitalist; ATTEND Internal Medicine Pulmonary Disease
PROC: 30233N1 Transfusion of Nonautologous Red Blood Cells into Peripheral Vein, Percutaneous Approach (ICD-10-PCS; 2020-04-09)
PROC: 0Y9M0ZZ Drainage of Right Foot, Open Approach (ICD-10-PCS; 2020-04-10)
PROC: 0QTN0ZZ Resection of Right Metatarsal, Open Approach (ICD-10-PCS; principal; 2020-04-10 12:01)
PROC: 02HV33Z Insertion of Infusion Device into Superior Vena Cava, Percutaneous Approach (ICD-10-PCS; 2020-04-12)
DX: A41.9 Sepsis, unspecified organism (principal); E43 Unspecified severe protein-calorie malnutrition; L03.115 Cellulitis of right lower limb; E11.621 Type 2 diabetes mellitus with foot ulcer; E11.65 Type 2 diabetes mellitus with hyperglycemia; E11.51 Type 2 diabetes mellitus with diabetic peripheral angiopathy without gangrene; E11.69 Type 2 diabetes mellitus with other specified complication; L97.519 Non-pressure chronic ulcer of other part of right foot with unspecified severity; E87.1 Hypo-osmolality and hyponatremia; D62 Acute posthemorrhagic anemia; Z20.828 Contact with and (suspected) exposure to other viral communicable diseases; I10 Essential (primary) hypertension; E78.5 Hyperlipidemia, unspecified; E87.6 Hypokalemia; K21.9 Gastro-esophageal reflux disease without esophagitis; F32.9 Major depressive disorder, single episode, unspecified; F17.210 Nicotine dependence, cigarettes, uncomplicated; M86.671 Other chronic osteomyelitis, right ankle and foot; Z79.899 Other long term (current) drug therapy; Z79.4 Long term (current) use of insulin; Z59.0 Homelessness; Z91.19 Patient's noncompliance with other medical treatment and regimen; Z89.421 Acquired absence of other right toe(s)
CPT/HCPCS: 36415; 36569; 71045; 73700; 80048; 80053; 80061; 80202; 82962; 83036; 83605; 84484; 85025; 85610; 85730; 86850; 86900; 86901; 86920; 87040; 87077; 87081; 87186; 87205; 93971; 96365; 96375; G0378; J0330; J0690; J1815; J2250; J2405; J2543; J2704; J3480; J7060

== ENCOUNTER 2022-10-24 11:42 | Emergency (ER) | payer MEDICAID ==
[~2022-10-24] VITALS: Ht 165.1 cm; Wt 60.0 kg
[~2022-10-24 11:42] MED LIST changes: +CIP500T PO; +DOCU1CAP22 PO; -DOCU1CAP31 PO; +MET500T PO
[2022-10-24] MEDS ORDERED: SODIUM CHLORIDE 0.9% 1,000 ML IVB ONE (12:15)
[2022-10-24] MEDS ORDERED: LORazepam 2MG/ML-1ML VIAL IV ONE (12:15)
[2022-10-24 13:15] LABS: Albumin 3.5 g/dL (3.4-5.0); Anion Gap 4 (5-15); Blood Alcohol < 3.0 mg/dL (0-5); Blood Urea Nitrogen 15 mg/dL (7-18); Calcium 8.7 mg/dL (8.5-10.1); Carbon Dioxide 26 mmol/L (21-32); Chloride 110 mmol/L (98-107); Glucose 197 mg/dL (74-106); Potassium 3.3 mmol/L (3.5-5.1); Sodium 140 mmol/L (136-145)
[2022-10-24 13:18] LABS: Alanine Aminotransferase 47 U/L (16-61); Alkaline Phosphatase 71 U/L (45-117); Aspartate Aminotransferase 40 U/L (15-37); BUN/Creatinine Ratio 13.9 (10.0-20.0); Bilirubin, Total 1.1 mg/dL (0.2-1.0); GFR African American 96 mL/min; GFR Non-African American 79 mL/min; Total Protein 6.5 g/dL (6.4-8.2)
[2022-10-24 13:35] VITALS: BP 159/101
[2022-10-24 14:20] LABS: Basophils # (auto) 0.1 10 ^3/uL (0-0.2); Eosinophils # (auto) 0.1 10 ^3/uL (0-0.8); Lymphocytes # (auto) 1.3 10 ^3/uL (0.4-5.4); Mean Corpuscular Volume 79.7 fL (80.0-100.0); Monocytes # (auto) 0.4 10 ^3/uL (0-1.3); Neutrophils % (auto) 73.2 % (37.0-80.0); Nucleated Red Blood Cells % 0.1 %; Red Cell Distribution Width 13.5 % (11.8-14.3)
[2022-10-24 14:22] LABS: Basophils % (auto) 0.9 % (0.0-2.0); Eosinophils % (auto) 1.1 % (0.0-7.0); Hematocrit 35.8 % (41.0-53.0); Hemoglobin 11.5 g/dL (13.5-17.5); Lymphocytes % (auto) 19.5 % (10.0-50.0); Mean Corpuscular Hemoglobin 25.5 pg (28.0-32.0); Monocytes % (auto) 5.3 % (0.0-12.0); Neutrophils # (auto) 5.1 10 ^3/uL (1.6-8.6); Red Blood Cells 4.49 10^6/uL (4.5-5.90); White Blood Cell 6.9 10^3/uL (4.4-10.8)
== END 2022-10-24 17:04 | disposition home or self-care (01) ==
LOC: EDUNIT# 11:42 → ER 11:42 → EDBD 11:42 → ER 17:04
DX: R56.9 Unspecified convulsions (principal); E11.9 Type 2 diabetes mellitus without complications; K21.9 Gastro-esophageal reflux disease without esophagitis; E78.5 Hyperlipidemia, unspecified; I10 Essential (primary) hypertension; F17.210 Nicotine dependence, cigarettes, uncomplicated; F12.10 Cannabis abuse, uncomplicated; F15.10 Other stimulant abuse, uncomplicated; Z59.00 Homelessness unspecified
CPT/HCPCS: 36415; 70450; 80053; 80164; 80320; 85025; 93005; 96361; 96365; 96375; 99285; J1953; J2060; J7030; J7060

== ENCOUNTER 2022-11-07 17:11 | Emergency (ER) | payer MEDICAID ==
[~2022-11-07] VITALS: Ht 188 cm; Wt 102.4 kg
[2022-11-07] MEDS ORDERED: KETOROLAC TROMETH 30 MG/ML 1ML VIAL IV ONE (18:30)
[2022-11-07] MEDS ORDERED: ACETAMINOPHEN 325 MG TAB PO ONE (18:30)
[2022-11-07] MEDS ORDERED: SODIUM CHLORIDE 0.9% 1,000 ML IV ONE (18:30)
[2022-11-07] MEDS ORDERED: oxyCODONE HCL 5MG TAB PO ONE (18:45)
[2022-11-07 19:00] LABS: Basophils # (auto) 0.1 10 ^3/uL (0-0.2); Eosinophils # (auto) 0.1 10 ^3/uL (0-0.8); Nucleated Red Blood Cells % 0.2 %
[2022-11-07 19:02] LABS: Basophils % (auto) 1.5 % (0.0-2.0); Eosinophils % (auto) 1.6 % (0.0-7.0); Hematocrit 34.8 % (41.0-53.0); Hemoglobin 11.3 g/dL (13.5-17.5); Lymphocytes # (auto) 2.4 10 ^3/uL (0.4-5.4); Lymphocytes % (auto) 34.2 % (10.0-50.0); Mean Corpuscular Hemoglobin 25.8 pg (28.0-32.0); Mean Corpuscular Hgb Conc. 32.6 g/dL (32.0-36.0); Mean Corpuscular Volume 79.3 fL (80.0-100.0); Monocytes # (auto) 0.4 10 ^3/uL (0-1.3); Monocytes % (auto) 6.4 % (0.0-12.0); Neutrophils # (auto) 3.9 10 ^3/uL (1.6-8.6); Neutrophils % (auto) 56.3 % (37.0-80.0); Red Blood Cells 4.39 10^6/uL (4.5-5.90); Red Cell Distribution Width 13.1 % (11.8-14.3); White Blood Cell 6.9 10^3/uL (4.4-10.8)
[2022-11-07 19:14] LABS: Albumin 3.5 g/dL (3.4-5.0); Calcium 8.6 mg/dL (8.5-10.1); Potassium 3.7 mmol/L (3.5-5.1)
[2022-11-07 19:18] LABS: BUN/Creatinine Ratio 11.5 (10.0-20.0); Bilirubin, Total 0.7 mg/dL (0.2-1.0); Total Protein 6.7 g/dL (6.4-8.2)
[2022-11-07] MEDS ORDERED: DOXYCYCLINE 100 MG TAB/CAP PO ONE (20:00)
[2022-11-07] MEDS ORDERED: cefTRIAXone 1GM/50ML D5W 50 ML IV ONE (20:00)
[2022-11-07 21:27] LABS: Urine Bacteria FEW /hpf (None Seen); Urine Blood Negative /uL (Negative); Urine Hyaline Cast MOD /lpf (0 - 2); Urine Mucus FEW (None Seen); Urine Specific Gravity 1.018 (1.001-1.035); Urine WBC 3 /hpf (0 - 3)
[2022-11-07] MEDS ORDERED: LIDO5DIS21 TOP (23:05)
[2022-11-07] MEDS ORDERED: ACET-1079 PO (23:05)
[2022-11-07] MEDS ORDERED: DOXY-286 PO (23:05)
[2022-11-07] MEDS ORDERED: CEFD300C2 PO (23:05)
[2022-11-07] MEDS ORDERED: IBUP400T23 PO (23:05)
[2022-11-07 23:37] VITALS: BP 136/77
== END 2022-11-07 23:49 | disposition home or self-care (01) ==
LOC: ER 17:11
DX: N12 Tubulo-interstitial nephritis, not specified as acute or chronic (principal); J18.9 Pneumonia, unspecified organism; M54.50 Low back pain, unspecified; E11.9 Type 2 diabetes mellitus without complications; K21.9 Gastro-esophageal reflux disease without esophagitis; E78.5 Hyperlipidemia, unspecified; I10 Essential (primary) hypertension; F17.210 Nicotine dependence, cigarettes, uncomplicated; F12.10 Cannabis abuse, uncomplicated; F15.10 Other stimulant abuse, uncomplicated; Z59.00 Homelessness unspecified
CPT/HCPCS: 36415; 71045; 72128; 72131; 74176; 80053; 81001; 83690; 85025; 96361; 96365; 96375; 99285; J0696; J1885; J7030